=== PATIENT | male | born 1945 | race Caucasian/White ===

== ENCOUNTER 2023-07-07 09:51 | Outpatient (REF) | payer MEDICARE, MEDICAID, SELFPAY ==
[2023-07-07 10:04] LABS: MANUAL DIFF FLAG NO
[2023-07-07 10:15] LABS: Basophils Absolute Auto 0.1 X10*3/uL (0.0-0.2); Basophils Percent Auto 1.1 % (0-2); Eosinophils Absolute Auto 0.5 X10*3/uL (0.0-0.4); Hematocrit 42.4 % (42.0-52.0); Hemoglobin 14.3 g/dl (14.0-18.0); Imm Gran Abs Auto 0.02 X10*3/uL (0.00-0.03); Imm Gran Pct Auto 0.3 % (0.0-0.4); Lymphocytes Absolute Auto 1.8 X10*3/uL (1.2-4.9); Mean Corpuscular HGB Conc 33.7 g/dl (31.0-36.0); Mean Corpuscular Hemoglobin 30.8 pg (27.0-33.0); Mean Corpuscular Volume 91.2 fL (80.0-98.0); Mean Platelet Volume 9.8 fL (9.4-12.4); Monocytes Absolute Auto 0.7 X10*3/uL (0.1-1.2); Monocytes Percent Auto 9.9 % (2-11); Neutrophils Absolute Auto 4.3 x10*3/uL (2.0-8.3); Neutrophils Percent Auto 57.7 % (45-73); Platelet Count 221 X10*3/uL (160-400); Red Blood Count 4.65 X10*6/uL (4.60-5.80); Red Cell Distribution Width 13.1 % (11.0-16.0); White Blood Count 7.4 X10*3/uL (4.8-10.8)
[2023-07-07 10:53] LABS: Erythrocyte Sedimentation Rate 6 MM/HR (0-15)
[2023-07-07 11:00] LABS: C Reactive Protein 0.59 mg/dL (< or = 0.50)
== END 2023-07-07 09:52 | disposition home or self-care (01) ==
LOC: HO.LAB 09:51
PROVIDERS: PCP Family Medicine; Visit Provider Registered Nurse
DX: G44.209 Tension-type headache, unspecified, not intractable (principal)
CPT/HCPCS: 36415; 85025; 85652; 86140

== ENCOUNTER 2025-03-19 14:39 | Outpatient (AMB) | payer MEDICARE, MEDICAID, SELFPAY ==
--- NOTE | 2025-03-19 14:46 | MHC.OFFVIS ---
Intake Visit Reasons: 6m Allergies morphine Allergy (Unknown, Verified 03/19/25 14:52) Unknown Medication List - Last Reconciled 03/19/25 by Suze Cody CNP amlodipine 10 mg PO DAILY atorvastatin 40 mg PO QPM budesonide DR-ER 9 mg PO QAM duloxetine 30 mg PO DAILY gabapentin mg PO lisinopril-hydrochlorothiazide 20-12.5 mg 1 tab PO DAILY loperamide 2 mg PO Q8H PRN lorazepam mg PO omeprazole 40 mg PO BID tizanidine 4 mg PO BEDTIME PRN 30 days topiramate 50 mg PO BID 90 days HPI Comments Details: Headaches are about 50% better. Getting Botox every 3 months at [facility], first was around 08/2024. Taking duloxetine daily and topiramate twice a day. Chronic neck pain and stiffness continues. He was not sure if had received tizanidine. He was taking cyclobenzaprine in the past which helped some, but medication was no longer covered by insurance and tizanidine was sent as alternative. He occasionally felt burning-type sensation to top of head, following with dermatology and having skin cancer lesions removed, advised to use Vasiline. Sleep was okay. He saw [facility] in summer 2023, was told there was not much else they could do, and was referred to pain management. He was previously taking Tylenol Extra Strength 6 tabs/day x6 months. Started on colchicine for pericarditis. Chronic neck pain and stiffness. No longer seeing chiropractor. Tried acupuncture in the past. Had trigger point injections in the neck for neck pain from [employer] without any improvement and stopped.? He had neck surgery in 2008 with extensive fusion with hardware from C4-T1 both anterior and posterior and multiple lumbar disc surgeries from 2009 to 2013 comes in because of stiff neck and almost daily headaches for the last couple of months. MRI of the brain shows a right middle fossa anterior temporal arachnoid cyst without mass effect, given septum pellucidum and mild atrophy. MRI of the cervical spine shows anterior fusion C4-C7 posterior fusion C4-T1 and odontoid erosion with bone marrow edema and a prominent pannus formation without cord compression. [facility] Medical History (Updated 03/19/25 @ 14:49 by Suze Cody CNP) Lumbar disc disease Hyperlipidemia Hypertension Cervical disc disease Tension headache Review of Systems Const Denies chills, Denies daytime sleepiness, Reports difficulty sleeping, Denies fatigue, Denies fever(s), Denies frequent falls, Reports headache(s), Denies increased appetite, Denies poor appetite, Denies snoring, Denies weakness, Denies weight gain and Denies weight loss Eyes Denies loss of vision ENT Denies vertigo, Denies dizziness, Reports headache(s) and Reports neck pain Card Denies chest pain at rest, Denies chest pain with activity, Denies syncope, Denies leg edema, Denies palpitations, Denies dyspnea and Denies dyspnea on exertion Resp Denies cough, Denies dyspnea, Denies dyspnea on exertion and Denies snoring GI Denies abdominal pain, Denies constipation, Denies heartburn, Denies diarrhea and Denies nausea Denies urinary frequency, Denies urinary incontinence and Denies urinary urgency Musc Denies abnormal gait, Reports back pain, Denies myalgias, Denies arthralgias, Reports neck pain, Denies numbness and Denies tingling Neuro Denies abnormal gait, Denies vertigo, Denies dizziness, Denies syncope, Denies frequent falls, Reports headache(s), Denies lack of coordination, Denies loss of vision, Denies memory loss, Denies numbness, Denies Other visual disturbances, Denies restless legs, Denies seizure-like activity, Denies tingling, Denies paresthesias, Denies tremor(s) and Denies weakness Psych Reports anxiety, Denies depression, Denies auditory hallucinations, Denies memory loss and Denies visual hallucinations Endo Denies fatigue and Denies palpitations Physical Exam Const Other: General Appearance:? normal, in no acute distress. Heart:? S1, S2 normal, no murmurs. Lungs:? clear anteriorly and posteriorly. Musculoskeletal:? normal. Extremities:? no edema. Psych:? alert, oriented, cognitive function intact, cooperative with exam. Neuro Other: Abnormal Neurological Findings:?none.? Mental Status: alert and oriented X 3. Normal attention, orientation, memory, and affect. Cranial Nerves: Pupils are equal, round, and reactive to light. External ocular muscles are intact. Visual irwin are full, no ptosis. Face is symmetrical, no facial weakness or droop. Facial sensations are normal. Tongue protrudes in midline. Palate elevates symmetrically. Shoulder shrugging is normal Motor Examination: Normal muscle tone, bulk and strength. No atrophy or fasciculations. No drift of the extended upper extremities. DTR 2+. Plantars are flexor. Sensory Exam: Normal light touch, temperature, pinprick, vibration, and joint-position sensations. Rhomberg sign is absent. Coordination: No ataxia. No titubation. Gait Exam: Within normal limits. Cerebellar Signs: [id number] is okay. Extrapyramidal System: No tremor, rigidity with normal facial expressions. No bradykinesia. No bradyphrenia. Normal arm swing and posture. No propulsion or retropulsion. Speech: Normal. Results Reviewed Results Reviewed: Laboratory Tests 07/07/23 10:02 ESR 6 C-Reactive Protein 0.59 H Assessment & Plan Assessment & Plan (1) Chronic daily headache: Code(s): R51.9 - Headache, unspecified Category: Medical Plan: Continue duloxetine 30mg 1 tablet daily. Continue topiramate 50mg 1 tablet twice a day. (2) Tension headache: Code(s): G44.209 - Tension-type headache, unspecified, not intractable Category: Medical (3) Cervical disc disease: Comment: anterior and posterior cervical spine surgery with C4-T1 fusion with hardware 2008 Code(s): M50.90 - Cervical disc disorder, unspecified, unspecified cervical region Category: Medical Plan: Continue tizanidine 4mg 1 tablet at bedtime as needed for muscle spasm/pain Plan Meds tried: cyclobenzaprine, doxepin, amitriptyline Medications: New duloxetine 30 mg PO DAILY 90 caps 1RF 90 days Refilled tizanidine 4 mg PO BEDTIME PRN 30 tabs 5RF muscle spasticity, pain 30 days Coding Level of Care Code Est Pt Level 4 (35508) Diagnoses Chronic daily headache R51.9 Tension headache G44.209 Cervical disc disease M50.90
--- OUTSIDE RECORDS SUMMARY | 2025-03-20 04:55 | XMS_ITS | Data Portability ---
Author Organization [facility], Main Office Address [address] [place] [address] Care Team Providers Care Journeyman Operator Assistant Name Role Phone KEELY SALEH Neurosurgeon [phone] MICHELLE TRUONG 411 Directory Assistance Operator AMAURY GODINEZ Transfer And Pumphouse Operator Chief MARIBEL LOVE Orthopedic Surgeon DESIREE BENSON Orthopedic Surgeon ROBBI GALLARDO Primary Care Provider [phone] KINZA STEVENSON General Maintenance Engineer KINZA STEVENSON Transplant Surgeon [facility] Neurologist Assessment No assessment recorded. Plan of Treatment Reminders Order Date Submit Date Provider Last Modified By Organization Details Last Modified Time Details Appointments None recorde d. Lab magnesi um, serum or plasma 2024 025 XANDER [facility] (Centralized Electronic Ordering - All Locations), Patient Can Go To The Location Of Their Choice, [id number] 5 08:08:17 lipid panel, serum 2024 025 [facility], [address], [place], [address], 5 08:08:17 CBC w/ auto diff 2024 025 [facility], [address], [place], [address], 5 08:08:16 CMP, serum or plasma 2024 025 [facility] (Centralized Electronic Ordering - All Locations), Patient Can Go To The Location Of Their Choice, 5 08:08:17 electro lyte panel, stool 2023 024 [facility] (Centralized Electronic Ordering - All Locations), Patient Can Go To The Location Of Their Choice, 4 18:05:57 osmolal ity, stool 2023 024 [facility] (Centralized Electronic Ordering - All Locations), Patient Can Go To The Location Of Their Choice, 18:05:59 calprot ectin, stool 2023 024 [facility] (Centralized Electronic Ordering - All Locations), Patient Can Go To The Location Of Their Choice, 18:05:58 CBC w/ auto diff 2023 024 [facility] (Centralized Electronic Ordering - All Locations), Patient Can Go To The Location Of Their Choice, 4 08:09:22 BMP, serum or plasma 2023 024 [facility] (Centralized Electronic Ordering - All Locations), Patient Can Go To The Location Of Their Choice, 4 08:09:23 Referral dermato logist referra l - non healing wound/s cab top of head sun exposed , pls eval viviana. fhx of skin ca 2023 024 [email or web address] [facility], [address], [address], [place], [address], 4 09:52:52 colon & rectal surgeon referra l 2023 024 john Not available 5 10:37:34 cardiol ogist referra l 2023 024 [email or web address] Chapman MD, [address] [place], [address], 10:38:01 Procedures None recorde d. Surgeries None recorde d. Imaging None recorde d. Medication Orders compoun ded medicat ion 2023 024 [facility], [address] [place] [address], [address], 14:06:10 Patient TargetsNo targets recorded. Patient Instructions Encounter Date Encounter Id Patient Instructions Last Modified By Organization Details Last Modified Time 02/01/2024 [id number] pericarditis: care instructions [email or web address] Not available 02/07/2024 13:41:41 diarrhea: care instructions [email or web address] Not available 02/01/2024 14:27:16 electrolyte imbalance: care instructions ckokar Not available 02/01/2024 14:27:16 hyponatremia: care instructions ckokar Not available 02/01/2024 14:27:17 At [facility] follow up visit, all current and discharge medications (OTC, herbal therapies, supplements) reviewed and reconciled with patient and or caregiver, including potential side effects, drug interactions, instructions, and the consequences of not taking medication. Reviewed potential barriers to medication adherence, such as side effects from medication or cost of medication. ckokar Not available 02/01/2024 14:37:10 02/23/2024 [id number] pericarditis: care instructions ckokar Not available 02/23/2024 14:00:42 diarrhea: care instructions ckokar Not available 02/23/2024 14:00:42 hemorrhoids: car e instructions ckokar Not available 02/23/2024 14:04:47 04/18/2024 [id number] pericarditis: care instructions ckokar Not available 04/18/2024 14:25:07 headache: care instructions ckokar Not available 04/18/2024 14:25:07 high blood pressure: care instructions ckokar Not available 04/18/2024 14:25:08 learning about high blood pressure ckokar Not available 04/18/2024 14:25:07 11/20/2024 [id number] advance care planning: care instructions ckokar Not available 11/20/2024 15:15:57 preventing falls : care instructions ckokar Not available 11/20/2024 15:15:57 Reason for Referral 411 Directory Assistance Operator Referral for Pe ricarditis Referring Physician: Robbi Gallardo [facility], Encounter Date: 02/01/2024 Colon & Rectal Surgeon Refer ral for Hemorrhoids Referring Physician: Robbi Gallardo [facility], Encounter Date: 02/23/2024 Pipe Installer Referral for N on-healing pigmented skin lesion non healing wound/scab top of head sun exposed, pls eval viviana. fhx of skin ca Referring Physician: Robbi Gallardo [facility], Encounter Date: 04/18/2024 Results Created Date Observation Date Name Description Value Unit Range Abnormal Flag Note LastModifiedBy Organization Detail LastModifiedTime 01/25/20 24 01/26/2024 ERICKA C DISEA SE COMPR EHENS EMELYN deamidated gliadin abs, IgA 6 units 0-19 Negat emelyn 0 - 19 Weak Posit emelyn 20 - 30 Moder ate to Stron g Posit emelyn >30 Not Available [facility] ([facility]) [address] [place], [address], 01/26/2024 22:06:01 01/25/20 24 01/26/2024 ERICKA C DISEA SE COMPR EHENS EMELYN deamidated gliadin abs, IgG 3 units 0-19 Negat emelyn 0 - 19 Weak Posit emelyn 20 - 30 Moder ate to Stron g Posit emelyn >30 Not Available [facility] ([facility]) [address] [place], [address], 01/26/2024 22:06:01 01/25/20 24 01/26/2024 ERCIKA C DISEA SE COMPR EHENS EMELYN T-transgluta minase (ttg) IgA <2 U/mL 0-3 Negat emelyn 0 - 3 Weak Posit emelyn 4 - 10 Posit emelyn >10 Tissu e Trans gluta isaias e (tTG) has been ident ified as the endom ysial antig en. Studi es have demon str- ated that endom ysial IgA antib odies have over 99% speci ficit y for glute n sensi tive enter opath y. Not Available [facility] ([facility]) [address], [place], [address], 01/26/2024 22:06:01 01/25/20 24 01/26/2024 ERICKA C DISEA SE COMPR EHENS EMELYN T-transgluta minase (ttg) IgG 4 U/mL 0-5 Negat emelyn 0 - 5 Weak Posit emelyn 6 - 9 Posit emelyn >9 Not Available [facility] ([facility]) [address], [place], [address], 01/26/2024 22:06:01 01/25/20 24 01/26/2024 ERICKA C DISEA SE COMPR EHENS EMELYN endomysial antibody IgA Negati ve negati ve Not Available [facility] ([facility]) [address], [place], [address], 01/26/2024 22:06:01 01/25/20 24 01/26/2024 ERICKA C DISEA SE COMPR EHENS EMELYN immunoglobul in A, qn, serum 219 mg/dL 61-437 normal Not Available [facility] ([facility]) [address], [place], [address], 01/26/2024 22:06:01 01/25/20 24 01/26/2024 CBC WITH DIFFE RENTI AL/PL ATELE T WBC 8.1 x10e3 /uL 3.4-10 .8 normal Not Available [facility] ([facility]) [address] [place], [address], 01/26/2024 22:06:02 01/25/20 24 01/26/2024 CBC WITH DIFFE RENTI AL/PL ATELE T RBC 4.15 x10e6 /uL 4.14-5 .80 normal Not Available [facility] ([facility]) [address] [place], [address], 01/26/2024 22:06:02 01/25/20 24 01/26/2024 CBC WITH DIFFE RENTI AL/PL ATELE T hemoglobin 12.9 g/dL 13.0-1 7.7 below low normal Not Available [facility] ([facility]) [address] [place], [address], 01/26/2024 22:06:02 01/25/2001/26/2024 CBC WITH DIFFE RENTI AL/PL ATELE T hematocrit 38.2 % 37.5-5 1.0 normal Not Available [facility] ([facility]) [address] [place], [address], 01/26/2024 22:06:02 01/25/20 24 01/26/2024 CBC WITH DIFFE RENTI AL/PL ATELE T MCV 92 fL 79-97 normal Not Available [facility] ([facility]) [address] [place], [address], 01/26/2024 22:06:02 01/25/20 24 01/26/2024 CBC WITH DIFFE RENTI AL/PL ATELE T MCH 31.1 pg 26.6-3 3.0 normal Not Available [facility] ([facility]) [address] [place], [address], 01/26/2024 22:06:02 01/25/20 24 01/26/2024 CBC WITH DIFFE RENTI AL/PL ATELE T MCHC 33.8 g/dL 31.5-3 5.7 normal Not Available [facility] ([facility]) [address] [place], [address], 01/26/2024 22:06:02 01/25/20 24 01/26/2024 CBC WITH DIFFE RENTI AL/PL ATELE T RDW 13.0 % 11.6-1 5.4 Not Available [facility] ([facility]) [address] [place], [address], 01/26/2024 22:06:02 01/25/20 24 01/26/2024 CBC WITH DIFFE RENTI AL/PL ATELE T platelets 468 x10e3 /uL 150-45 0 above high normal Not Available [facility] ([facility]) [address], [place], [address], 01/26/2024 22:06:02 01/25/20 24 01/26/2024 CBC WITH DIFFE RENTI AL/PL ATELE T neutrophils 71 % not estab. normal Not Available [facility] ([facility]) [address], [place], [address], 01/26/2024 22:06:02 01/25/20 24 01/26/2024 CBC WITH DIFFE RENTI AL/PL ATELE T lymphs 17 % not estab. normal Not Available [facility] ([facility]) [address] [facility], [place], [address], 01/26/2024 22:06:02 01/25/20 24 01/26/2024 CBC WITH DIFFE RENTI AL/PL ATELE T monocytes 8 % not estab. normal Not Available [facility] ([facility]) [address], [place], [address], 01/26/2024 22:06:02 01/25/20 24 01/26/2024 CBC WITH DIFFE RENTI AL/PL ATELE T eos 3 % not estab. normal Not Available [facility] ([facility]) [address], [place], [address], 01/26/2024 22:06:02 01/25/20 24 01/26/2024 CBC WITH DIFFE RENTI AL/PL ATELE T basos 1 % not estab. normal Not Available [facility] ([facility]) [address], [place], [address], 01/26/2024 22:06:02 01/25/20 24 01/26/2024 CBC WITH DIFFE RENTI AL/PL ATELE T immature cells WINE MAKER Not Available [facility] ([facility]) [address] [place], [address], 01/26/2024 22:06:02 01/25/20 24 01/26/2024 CBC WITH DIFFE RENTI AL/PL ATELE T neutrophils (absolute) 5.7 x10e3 /uL 1.4-7. 0 normal Not Available [facility] ([facility]) [address] [place], [address], 01/26/2024 22:06:02 01/25/20 24 01/26/2024 CBC WITH DIFFE RENTI AL/PL ATELE T lymphs (absolute) 1.3 x10e3 /uL 0.7-3. 1 normal Not Available [facility] ([facility]) [address] [place], [address], 01/26/2024 22:06:02 01/25/20 24 01/26/2024 CBC WITH DIFFE RENTI AL/PL ATELE T monocytes(ab solute) 0.7 x10e3 /uL 0.1-0. 9 normal Not Available [facility] ([facility]) [address] [place], [address], 01/26/2024 22:06:02 01/25/20 24 01/26/2024 CBC WITH DIFFE RENTI AL/PL ATELE T eos (absolute) 0.3 x10e3 /uL 0.0-0. 4 normal Not Available [facility] ([facility]) [address] [place], [address], 01/26/2024 22:06:02 01/25/20 24 01/26/2024 CBC WITH DIFFE RENTI AL/PL ATELE T baso (absolute) 0.1 x10e3 /uL 0.0-0. 2 normal Not Available [facility] ([facility]) [address] [place], [address], 01/26/2024 22:06:02 01/25/20 24 01/26/2024 CBC WITH DIFFE RENTI AL/PL ATELE T immature granulocytes 0 % not estab. Not Available [facility] ([facility]) [address] [facility], [place], [address], 01/26/2024 22:06:02 01/25/20 24 01/26/2024 CBC WITH DIFFE RENTI AL/PL ATELE T immature grans (abs) 0.0 x10e3 /uL 0.0-0. 1 Not Available [facility] ([facility]) [address], [place], [address], 01/26/2024 22:06:02 01/25/20 24 01/26/2024 CBC WITH DIFFE RENTI AL/PL ATELE T NRBC WINE MAKER Not Available [facility] ([facility]) [address] [facility], [place], [address], 01/26/2024 22:06:02 01/25/20 24 01/26/2024 CBC WITH DIFFE RENTI AL/PL ATELE T hematology comments: WINE MAKER Not Available [facility] ([facility]) [address] [facility], [place], [address], 01/26/2024 22:06:02 01/25/20 24 01/26/2024 COMP. METAB OLIC PANEL (14) glucose 119 mg/dL 70-99 above high normal Not Available [facility] ([facility]) [address] [facility], [place], [address], 01/26/2024 22:06:03 01/25/20 24 01/26/2024 COMP. METAB OLIC PANEL (14) BUN 16 mg/dL 8-27 normal Not Available [facility] ([facility]) [address] [place], [address], 01/26/2024 22:06:03 01/25/20 24 01/26/2024 COMP. METAB OLIC PANEL (14) creatinine 0.91 mg/dL 0.76-1 .27 normal Not Available [facility] ([facility]) [address] [place], [address], 01/26/2024 22:06:03 01/25/20 24 01/26/2024 COMP. METAB OLIC PANEL (14) eGFR 87 mL/mi n/1.7 3 >59 normal Not Available [facility] ([facility]) [address] [facility], [place], [address], 01/26/2024 22:06:03 01/25/20 24 01/26/2024 COMP. METAB OLIC PANEL (14) BUN/creatini ne ratio 18 10-24 normal Not Available [facility] ([facility]) [address] [facility], [place], [address], 01/26/2024 22:06:03 01/25/20 24 01/26/2024 COMP. METAB OLIC PANEL (14) sodium 136 mmol/ L 134-14 4 normal Not Available [facility] ([facility]) [address] [place], [address], 01/26/2024 22:06:03 01/25/20 24 01/26/2024 COMP. METAB OLIC PANEL (14) potassium 3.8 mmol/ L 3.5-5. 2 normal Not Available [facility] ([facility]) [address] [place], [address], 01/26/2024 22:06:03 01/25/20 24 01/26/2024 COMP. METAB OLIC PANEL (14) chloride 100 mmol/ L 96-106 normal Not Available [facility] ([facility]) [address] [place], [address], 01/26/2024 22:06:03 01/25/20 24 01/26/2024 COMP. METAB OLIC PANEL (14) carbon dioxide, total 21 mmol/ L 20-29 normal Not Available [facility] ([facility]) [address] [facility], [place], [address], 01/26/2024 22:06:03 01/25/20 24 01/26/2024 COMP. METAB OLIC PANEL (14) calcium 8.7 mg/dL 8.6-10 .2 normal Not Available [facility] ([facility]) [address] [facility], [place], [address], 01/26/2024 22:06:03 01/25/20 24 01/26/2024 COMP. METAB OLIC PANEL (14) protein, total 6.3 g/dL 6.0-8. 5 normal Not Available [facility] ([facility]) [address] [facility], [place], [address], 01/26/2024 22:06:03 01/25/20 24 01/26/2024 COMP. METAB OLIC PANEL (14) albumin 3.8 g/dL 3.8-4. 8 normal Not Available [facility] ([facility]) [address] [facility] [place], [address], 01/26/2024 22:06:03 01/25/20 24 01/26/2024 COMP. METAB OLIC PANEL (14) globulin, total 2.5 g/dL 1.5-4. 5 Not Available [facility] ([facility]) [address] [facility] [place], [address], 01/26/2024 22:06:03 01/25/20 24 01/26/2024 COMP. METAB OLIC PANEL (14) bilirubin, total 0.2 mg/dL 0.0-1. 2 normal Not Available [facility] ([facility]) [address] [facility] [place], [address], 01/26/2024 22:06:03 01/25/20 24 01/26/2024 COMP. METAB OLIC PANEL (14) alkaline phosphatase 99 IU/L 44-121 normal Not Available [facility] ([facility]) [address] [facility] [place], [address], 01/26/2024 22:06:03 01/25/20 24 01/26/2024 COMP. METAB OLIC PANEL (14) AST (SGOT) 20 IU/L 0-40 normal Not Available [facility] ([facility]) [address] [facility] [place], [address], 01/26/2024 22:06:03 01/25/20 24 01/26/2024 COMP. METAB OLIC PANEL (14) ALT (SGPT) 17 IU/L 0-44 normal Not Available [facility] ([facility]) [address] [facility] [place], [address], 01/26/2024 22:06:03 01/25/20 24 01/26/2024 TSH RFX ON ABNOR MAL TO FREE T4 TSH 2.370 uIU/m L 0.450- 4.500 normal Not Available [facility] ([facility]) [address] [facility] [place], [address], 01/26/2024 22:06:04 01/25/20 24 01/26/2024 C-KULWINDER CTIVE PROTE IN, QUANT C-reactive protein, quant 24 mg/L 0-10 above high normal Not Available [facility] ([facility]) [address] [place], [address], 01/26/2024 22:06:04 01/25/20 24 01/27/2024 IRON AND TIBC iron bind.cap.(TI BC) 247 ug/dL 250-45 0 below low normal Not Available [facility] ([facility]) [address] [facility] [place], [address], 01/28/2024 06:08:26 01/25/20 24 01/27/2024 IRON AND TIBC UIBC 218 ug/dL 111-34 3 normal Not Available [facility] ([facility]) [address] [place], [address], 01/28/2024 06:08:26 01/25/20 24 01/27/2024 IRON AND TIBC iron 29 ug/dL 38-169 below low normal Not Available [facility] ([facility]) [address] [facility] [place], [address], 01/28/2024 06:08:26 01/25/20 24 01/27/2024 IRON AND TIBC iron saturation 12 % 15-55 below low normal Not Available [facility] ([facility]) [address] [facility] [place], [address], 01/28/2024 06:08:26 01/25/20 24 01/27/2024 VITAM IN B12 AND FOLAT E vitamin B12 1166 pg/mL 232-12 45 normal Not Available [facility] ([facility]) [address] [place], [address], 01/28/2024 06:08:26 01/25/20 24 01/27/2024 VITAM IN B12 AND FOLAT E folate (folic acid), serum >20.0 NG/mL >3.0 A serum folat e shen ntrat ion of less than 3.1 ng/mL is consi dered to repre sent clini angus defic iency . Not Available [facility] ([facility]) [address] [place], [address], 01/28/2024 06:08:26 01/25/2001/28/2024 SOLUB LE TRANS LUTHER N THEATER EDUCATION TEACHER TOR soluble transferrin receptor 14.9 nmol/ L 12.2-2 7.3 Not Available [facility] ([facility]) [address] [place], [address], 01/28/2024 06:08:27 01/25/2001/27/2024 LUTHER TIN ferritin 259 NG/mL 30-400 normal Not Available [facility] ([facility]) [address] [place], [address], 01/28/2024 06:08:27 01/25/20 24 01/26/2024 RETIC ULOCY TE COUNT reticulocyte count 1.1 % 0.6-2. 6 Not Available [facility] ([facility]) [address] [facility], [place], [address], 01/28/2024 06:08:28 01/25/2001/26/2024 WRITT EN AUTHO RIZAT ION written authorizatio n Commen t Writt en Autho rizat ion Recei jason. Autho rizat ion recei jason from [facility] JAS GALLARDO for Link Reque st on 01-25 Logge d by Avtar Broussard Not Available [facility] ([facility]) [address] [facility], [place], [address], 01/28/2024 06:08:28 01/26/2002/22/2024 ELECT ROLYT ES, FECAL sodium, stool COMMEN T mmol/ L Test not perfo rmed Test not perfo rmed. Speci men submi tted is too visco us for testi ng. A credi t will be issue d. INTER PRETI VE INFOR MATIO N: Fecal Sodiu m A refer ence inter jennifer has not been estab lishe d for fecal speci mens. This test was devel oped and its perfo rmanc e jesse cteri stics deter mined by [employer] atori es. It has not been clear ed or appro jason by the [place] Food and Drug Admin istra tion. This test was perfo rmed in a CLIA certi fied labor atory and is inten ded for clini angus purpo ses. Not Available [facility] [address] [place], [address], 02/22/2024 14:56:23 01/26/20 24 02/22/2024 ELECT ROLYT ES, FECAL potassium, stool TNP Test not perfo rmed Not Available [facility]) [address] [place], [address], 02/22/2024 14:56:23 01/26/20 24 02/22/2024 ELECT ROLYT ES, FECAL chloride, stool TNP Test not perfo rmed Not Available [facility] ([facility]) [address] [place], [address], 02/22/2024 14:56:23 01/26/20 24 01/29/2024 FECAL FAT, QUALI TATIV E fats, neutral Normal Vangie l (<60 Dropl ets/H PF) Not Available [facility] ([facility]) [address] [place], [address], 02/22/2024 14:56:25 01/26/20 24 01/29/2024 FECAL FAT, QUALI TATIV E fats, total Normal Vangie l (<100 Dropl ets/H PF) Not Available [facility] ([facility]) [address] [facility], [place], [address], 02/22/2024 14:56:25 01/26/20 24 01/29/2024 LACTO LUTHER N, FECAL , QUANT . lactoferrin, fecal, quant. 3.56 ug/mL (g) 0.00-7 .24 Basel ine (norm al) 0.00 - 7.24 Mcdonough chauncey >7.24 An eleva chauncey resul t is indic ative of the prese nce of fecal lacto luther n, a marke r of intes tinal infla mmati on. A vangie l resul t does not exclu de the prese nce of intes tinal infla mmati on. The test can be used as an in vitro diagn ostic aid to disti nguis h patie nts with activ e infla mmato ry bowel disea se (IBD) from those with non-i nflam mator y irrit able bowel syndr ome (IBS) . Not Available [facility] ([facility]) [address] [place], [address], 02/22/2024 14:56:01/26/2001/29/2024 PANCR EATIC ELAST ASE, FECAL pancreatic elastase, fecal >800 ug_el ast./ g >200 Sever e Pancr eatic Insuf ficie ncy: <100 Moder ate Pancr eatic Insuf ficie ncy: 100 - 200 Vangie l: >200 Not Available [facility] ([facility]) [address] [facility], [place], [address], 02/22/2024 14:56:26 01/26/20 24 01/29/2024 CALPR OTECT IN, FECAL calprotectin , fecal 368 ug/g 0-120 above high normal Shen ntrat ion Inter preta tion Follo w-Up < 5 - 50 ug/g Vangie l None >50 -120 ug/g Borde rline Re-ev aluat e in 4-6 weeks >120 ug/g Abnor mal Repea t as clini tano indic ated Not Available [facility] ([facility]) [address] [facility], [place], [address], 02/22/2024 14:56:27 01/26/20 24 01/28/2024 OSMOL ALITY , FECAL osmolality, fecal 526 mosmo l/kg not estab. Not Available [facility] ([facility]) [address] [facility], [place], [address], 02/22/2024 14:56:27 01/27/2001/27/2024 D-DIM ER D-dimer 6.87 mg/L_ feu <1.01 above high normal The manuf actur er recom mends that a d-Dim er value of <0.5 FEU mg/L can be used in conju nctio n with clini angus crite vincent to help exclu de Deep Vein Throm bosis (DVT) and/o r Pulmo nary Embol ism (PE) in patie nts with a low prete st proba bilit y. Not Available [facility] [address], [place], [address], 01/27/2024 13:22:27 01/27/2001/2601/27/2024 PT AND PTT INR 1.1 0.9-1. 2 Refer ence inter jennifer is for non-a ntico agula chauncey patie nts. Sugge sted INR thera peuti c range for Vitam in K antag onist thera py: Stand maryam Dose (mode rate inten sity thera peuti c range ): 2.0 - 3.0 Highe r inten sity thera peuti c range 2.5 - 3.5 Not Available [facility] ([facility]) [address] [place], [address], 01/31/2024 18:05:55 01/27/20 24 01/27/2024 PT AND PTT prothrombin time 11.9 sec 9.1-12 .0 normal Not Available [facility] ([facility]) [address] [place], [address], 01/31/2024 18:05:55 01/27/20 24 01/27/2024 PT AND PTT APTT 30 sec 24-33 normal This test has not been valid ated for monit oring unfra ction ated hepar in thera py. aPTT- based thera peuti c range s for unfra ction ated hepar in thera py have not been estab paul cedillo. For gener al guide lines on Hepar in monit oring , refer to the [facility] Dire irene of Judy reynolds. Not Available [facility] ([facility]) [address] [facility], [place], [address], 01/31/2024 18:05:55 01/27/20 24 01/28/2024 B-TYP E NATRI URETI C PEPTI DE B-type natriuretic peptide 41.3 pg/mL 0.0-10 0.0 Sieme ns [facility] metho dolog y Not Available [facility] ([facility]) [address] [place], [address], 01/31/2024 18:05:55 01/27/20 24 01/29/2024 PROCA LCITO ROMEL procalcitoni n 0.05 NG/mL 0.00-0 .08 A proca lcito romel (PCT) level above 2.0 ng/mL on the first day of ICU admis beverley is assoc iated with a high risk for progr essio n to sever e sepsi s and/o r septi c shock . A PCT level below 0.5 ng/mL on the first day of ICU admis beverley is assoc iated with a low risk for progr essio n to sever e sepsi s and/o r septi c shock . Note: Shen ntrat ions <0.5 ng/mL do not exclu de an infec tion, on accou nt of local ized infec tions (with out syste allie signs ) which can be assoc iated with such low shen ntrat ions, or a syste allie infec tion in its initi al stage s (<6 hours ). Furth ermor e, incre ased proca lcito romel can occur witho ut infec tion. PCT shen ntrat ions betwe en 0.5 and 2.0 ng/mL shoul d be inter prete d diana g into accou nt the patie nt's histo ry. It is recom adi d to retes t PCT withi n 6-24 hours if any shen ntrat ions <2 ng/mL are obtai christophe. Not Available [facility] ([facility]) [address] [place], [address], 01/31/2024 18:05:56 01/27/20 24 01/28/2024 LDH LDH 208 IU/L 121-22 4 Not Available [facility] ([facility]) [address] [place], [address], 01/31/2024 18:05:56 01/27/20 24 01/27/2024 SEDIM ENTAT ION RATE- WESTE RGREN sedimentatio n rate-westerg sushma 23 mm/HR 0-30 normal Not Available [facility] ([facility]) [address] [place], [address], 01/31/2024 18:05:57 01/27/20 24 01/31/2024 LACTI C ACID, PLASM A lactic acid, plasma 13.5 mg/dL 4.8-25 .7 Not Available [facility] ([facility]) [address] [place], [address], 01/31/2024 18:05:57 01/28/20 24 01/31/2024 STOOL CULTU RE E coli shiga toxin EIA Negati ve negati ve Not Available [facility] ([facility]) [address] [place], [address], 02/02/2024 16:07:04 01/28/20 24 02/01/2024 STOOL CULTU RE campylobacte r culture Final report Not Available [facility] ([facility]) [address] [place], [address], 02/02/2024 16:07:04 01/28/20 24 02/01/2024 STOOL CULTU RE result 1 COMMEN T No Campy lobac ter speci es isola chauncey. Not Available [facility] ([facility]) [address] [place], [address], 02/02/2024 16:07:04 01/28/20 24 02/02/2024 STOOL CULTU RE salmonella/s higella screen Final report Not Available [facility] ([facility]) [address] [place], [address], 02/02/2024 16:07:04 01/28/20 24 02/02/2024 STOOL CULTU RE result 1 COMMEN T No Salmo berto or Shige lla recov ered. Not Available [facility] ([facility]) [address] [place], [address], 02/02/2024 16:07:04 01/28/20 24 01/31/2024 C DIFFI CILE TOXIN GENE DERIK C difficile toxin gene DERIK Negati ve negati ve Not Available [facility] ([facility]) [address] [place], [address], 02/02/2024 16:07:05 01/28/20 24 02/02/2024 OVA + BIRGIT ITE EXAM ova + parasite exam Final report These resul ts were obtai christophe using wet prepa ratio n(s) and trich kyree stain ed smear . This test does not inclu de testi ng for Crypt ospor idium parvu m, Cyclo spora , or Micro spori jacqueline. Not Available [facility] ([facility]) [address] [place], [address], 02/02/2024 16:07:05 01/28/20 24 02/02/2024 OVA + BIRGIT ITE EXAM result 1 COMMEN T No ova, cysts , or birgit ites seen. One negat emelyn speci men does not rule out the possi bilit y of a birgit itic infec tion. Not Available [facility] ([facility]) [address] [facility], [place], [address], 02/02/2024 16:07:05 01/28/20 24 02/02/2024 WHITE BLOOD CELLS (WBC) , STOOL white blood cells (WBC), stool Final report none seen Not Available [facility] ([facility]) [address] [place], [address], 02/02/2024 16:07:05 01/28/20 24 02/02/2024 WHITE BLOOD CELLS (WBC) , STOOL result 1 Commen t No white blood cells seen. Not Available [facility] ([facility]) [address] [place], [address], 02/02/2024 16:07:05 01/28/20 24 01/29/2024 GIARD IA LAMBL IA AG, EIA giardia lamblia Ag, EIA Negati ve negati ve Not Available [facility] ([facility]) [address] [place], [address], 02/02/2024 16:07:06 02/01/20 24 02/02/2024 CBC WITH DIFFE RENTI AL/PL ATELE T WBC 7.8 x10e3 /uL 3.4-10 .8 normal Not Available [facility] ([facility]) [address] [place], [address], 02/02/2024 08:09:22 02/01/20 24 02/02/2024 CBC WITH DIFFE RENTI AL/PL ATELE T RBC 3.77 x10e6 /uL 4.14-5 .80 below low normal Not Available [facility] ([facility]) [address] [place], [address], 02/02/2024 08:09:22 02/01/20 24 02/02/2024 CBC WITH DIFFE RENTI AL/PL ATELE T hemoglobin 11.9 g/dL 13.0-1 7.7 below low normal Not Available [facility] ([facility]) [address] [place], [address], 02/02/2024 08:09:22 02/01/2002/02/2024 CBC WITH DIFFE RENTI AL/PL ATELE T hematocrit 35.0 % 37.5-5 1.0 below low normal Not Available [facility] ([facility]) [address] [place], [address], 02/02/2024 08:09:22 02/01/20 24 02/02/2024 CBC WITH DIFFE RENTI AL/PL ATELE T MCV 93 fL 79-97 normal Not Available [facility] ([facility]) [address] [place], [address], 02/02/2024 08:09:22 02/01/20 24 02/02/2024 CBC WITH DIFFE RENTI AL/PL ATELE T MCH 31.6 pg 26.6-3 3.0 normal Not Available [facility] ([facility]) [address] [place], [address], 02/02/2024 08:09:22 02/01/2002/02/2024 CBC WITH DIFFE RENTI AL/PL ATELE T MCHC 34.0 g/dL 31.5-3 5.7 normal Not Available [facility] ([facility]) [address] [facility], [place], [address], 02/02/2024 08:09:22 02/01/2002/02/2024 CBC WITH DIFFE RENTI AL/PL ATELE T RDW 12.9 % 11.6-1 5.4 Not Available [facility] ([facility]) [address] [facility], [place], [address], 02/02/2024 08:09:22 02/01/20 24 02/02/2024 CBC WITH DIFFE RENTI AL/PL ATELE T platelets 422 x10e3 /uL 150-45 0 normal Not Available [facility] ([facility]) [address] [facility], [place], [address], 02/02/2024 08:09:22 02/01/2002/02/2024 CBC WITH DIFFE RENTI AL/PL ATELE T neutrophils 70 % not estab. normal Not Available [facility] ([facility]) [address] [facility], [place], [address], 02/02/2024 08:09:22 02/01/20 24 02/02/2024 CBC WITH DIFFE RENTI AL/PL ATELE T lymphs 16 % not estab. normal Not Available [facility] ([facility]) [address] [place], [address], 02/02/2024 08:09:22 02/01/20 24 02/02/2024 CBC WITH DIFFE RENTI AL/PL ATELE T monocytes 9 % not estab. normal Not Available [facility] ([facility]) [address] [facility], [place], [address], 02/02/2024 08:09:22 02/01/20 24 02/02/2024 CBC WITH DIFFE RENTI AL/PL ATELE T eos 4 % not estab. normal Not Available [facility] ([facility]) [address] [facility], [place], [address], 02/02/2024 08:09:22 02/01/20 24 02/02/2024 CBC WITH DIFFE RENTI AL/PL ATELE T basos 1 % not estab. normal Not Available [facility] ([facility]) [address] [place], [address], 02/02/2024 08:09:22 02/01/2002/02/2024 CBC WITH DIFFE RENTI AL/PL ATELE T immature cells WINE MAKER Not Available [facility] ([facility]) [address] [place], [address], 02/02/2024 08:09:22 02/01/20 24 02/02/2024 CBC WITH DIFFE RENTI AL/PL ATELE T neutrophils (absolute) 5.5 x10e3 /uL 1.4-7. 0 normal Not Available [facility] ([facility]) [address] [place], [address], 02/02/2024 08:09:22 02/01/20 24 02/02/2024 CBC WITH DIFFE RENTI AL/PL ATELE T lymphs (absolute) 1.2 x10e3 /uL 0.7-3. 1 normal Not Available [facility] ([facility]) [address] [place], [address], 02/02/2024 08:09:22 02/01/20 24 02/02/2024 CBC WITH DIFFE RENTI AL/PL ATELE T monocytes(ab solute) 0.7 x10e3 /uL 0.1-0. 9 normal Not Available [facility] ([facility]) [address] [place], [address], 02/02/2024 08:09:22 02/01/20 24 02/02/2024 CBC WITH DIFFE RENTI AL/PL ATELE T eos (absolute) 0.3 x10e3 /uL 0.0-0. 4 normal Not Available [facility] ([facility]) [address] [facility], [place], [address], 02/02/2024 08:09:22 02/01/20 24 02/02/2024 CBC WITH DIFFE RENTI AL/PL ATELE T baso (absolute) 0.1 x10e3 /uL 0.0-0. 2 normal Not Available [facility] ([facility]) [address] [facility], [place], [address], 02/02/2024 08:09:22 02/01/20 24 02/02/2024 CBC WITH DIFFE RENTI AL/PL ATELE T immature granulocytes 0 % not estab. Not Available [facility] ([facility]) [address] [facility], [place], [address], 02/02/2024 08:09:22 02/01/2002/02/2024 CBC WITH DIFFE RENTI AL/PL ATELE T immature grans (abs) 0.0 x10e3 /uL 0.0-0. 1 Not Available [facility] ([facility]) [address] [facility], [place], [address], 02/02/2024 08:09:22 02/01/20 24 02/02/2024 CBC WITH DIFFE RENTI AL/PL ATELE T NRBC WINE MAKER Not Available [facility] ([facility]) [address] [facility], [place], [address], 02/02/2024 08:09:22 02/01/2002/02/2024 CBC WITH DIFFE RENTI AL/PL ATELE T hematology comments: WINE MAKER Not Available [facility] ([facility]) [address] [facility], [place], [address], 02/02/2024 08:09:22 02/01/20 24 02/02/2024 BASIC METAB OLIC PANEL (8) glucose 116 mg/dL 70-99 above high normal Not Available [facility] ([facility]) [address] [place], [address], 02/02/2024 08:09:23 02/01/20 24 02/02/2024 BASIC METAB OLIC PANEL (8) BUN 12 mg/dL 8-27 normal Not Available [facility] ([facility]) [address] [place], [address], 02/02/2024 08:09:23 02/01/2002/02/2024 BASIC METAB OLIC PANEL (8) creatinine 0.78 mg/dL 0.76-1 .27 normal Not Available [facility] ([facility]) [address] [place], [address], 02/02/2024 08:09:23 02/01/20 24 02/02/2024 BASIC METAB OLIC PANEL (8) eGFR 92 mL/mi n/1.7 3 >59 normal Not Available [facility] ([facility]) [address] [place], [address], 02/02/2024 08:09:23 02/01/20 24 02/02/2024 BASIC METAB OLIC PANEL (8) BUN/creatini ne ratio 15 10-24 normal Not Available [facility] ([facility]) [address] [place], [address], 02/02/2024 08:09:23 02/01/2002/02/2024 BASIC METAB OLIC PANEL (8) sodium 138 mmol/ L 134-14 4 normal Not Available [facility] ([facility]) [address] [place], [address], 02/02/2024 08:09:23 02/01/20 24 02/02/2024 BASIC METAB OLIC PANEL (8) potassium 4.4 mmol/ L 3.5-5. 2 normal Not Available [facility] ([facility]) [address] [place], [address], 02/02/2024 08:09:23 02/01/2002/02/2024 BASIC METAB OLIC PANEL (8) chloride 105 mmol/ L 96-106 normal Not Available [facility] ([facility]) [address] [place], [address], 02/02/2024 08:09:23 02/01/2002/02/2024 BASIC METAB OLIC PANEL (8) carbon dioxide, total 18 mmol/ L 20-29 below low normal Not Available [facility] ([facility]) [address] [facility], [place], [address], 02/02/2024 08:09:23 02/01/2002/02/2024 BASIC METAB OLIC PANEL (8) calcium 8.7 mg/dL 8.6-10 .2 normal Not Available [facility] ([facility]) [address] [place], [address], 02/02/2024 08:09:23 02/24/2002/28/2024 ELECT ROLYT ES, FECAL sodium, stool 74 mmol/ L INTER PRETI VE INFOR MATIO N: Fecal Sodiu m A refer ence inter jennifer has not been estab lishe d for fecal speci mens. This test was devel oped and its perfo rmanc e jesse cteri stics deter mined by [employer] [facility]. It has not been clear ed or appro jason by the [place] Food and Drug Admin istra tion. This test was perfo rmed in a CLIA certi fied labor atory and is inten ded for clini angus purpo ses. Not Available [facility] ([facility]) [address] [place], [address], 03/02/2024 18:05:57 10/24/20 24 02/28/2024 ELECT ROLYT ES, FECAL potassium, stool 52 mmol/ L INTER PRETI VE INFOR MATIO N: Fecal Potas sium A refer ence inter jennifer has not been estab lishe d for fecal speci mens. This test was devel oped and its perfo rmanc e jesse cteri stics deter mined by [employer]. It has not been clear ed or appro jason by the [place] Food and Drug Admin istra tion. This test was perfo rmed in a CLIA certi fied labor atory and is inten ded for clini angus purpo ses. Not Available [facility] ([facility]) [address] [place], [address], 03/02/2024 18:05:57 02/24/20 24 02/28/2024 ELECT ROLYT ES, FECAL chloride, stool 35 mmol/ L INTER PRETI VE INFOR MATIO N: Fecal Chlor nilam A refer ence inter jennifer has not been estab lishe d for fecal speci mens. This test was devel oped and its perfo rmanc e jesse cteri stics deter mined by [employer]. It has not been clear ed or appro jason by the [place] Food and Drug Admin istra tion. This test was perfo rmed in a CLIA certi fied labor atory and is inten ded for clini angus purpo ses. Not Available [facility] ([facility]) [address] [place], [address], 03/02/2024 18:05:57 02/24/20 24 03/01/2024 CALPR OTECT IN, FECAL calprotectin , fecal 100 ug/g 0-120 Shen ntrat ion Inter preta tion Follo w-Up < 5 - 50 ug/g Vangie l None >50 -120 ug/g Borde rline Re-ev aluat e in 4-6 weeks >120 ug/g Abnor mal Repea t as clini tano indic ated Not Available [facility] ([facility]) [address] [facility], [place], [address], 03/02/2024 18:05:58 02/24/20 24 03/02/2024 OSMOL ALITY , FECAL osmolality, fecal COMMEN T mosmo l/kg Test not perfo rmed. One speci men was submi tted with reque sts for multi ple tests . The reque sted testi ng requi res a separ ate speci men for each test reque sted. Not Available [facility] ([facility]) [address] [place], [address], 03/02/2024 18:05:59 02/24/20 24 03/02/[address] PROBL EM request problem COMMEN T Test not perfo rmed. One speci men was submi tted with reque sts for multi ple tests . The reque sted testi ng requi res a separ ate speci men for each test reque sted. TEST: 10577 1 Osmol ality , Fecal Not Available [facility] ([facility]) [address] [place], [address], 03/02/2024 18:05:59 03/13/20 24 03/14/2024 ESR-W ES+CR P sedimentatio n rate-westerg sushma 5 mm/HR 0-30 normal Not Available [facility] ([facility]) [address] [place], [address], 03/16/2024 06:08:51 03/13/2003/14/2024 ESR-W ES+CR P C-reactive protein, quant <1 mg/L 0-10 Not Available [facility] ([facility]) [address] [place], [address], 03/16/2024 06:08:51 03/13/2003/14/2024 RHEUM ATOID FACTO R (RF) rheumatoid factor (rf) <10.0 IU/mL <14.0 Not Available [facility] ([facility]) [address] [place], [address], 03/16/2024 06:08:52 03/13/20 24 03/14/2024 HIV AB/P2 4 AG WITH REFLE X HIV Ab/P24 Ag screen Non Reacti ve non reacti ve HIV-1 /HIV- 2 antib odies and HIV-1 p24 antig en were NOT detec chauncey. There is no labor atory evide nce of HIV infec tion. HIV Negat emelyn Not Available [facility] ([facility]) [address] [place], [address], 03/16/2024 06:08:52 03/13/20 24 03/14/2024 SIN W/REF MAITE IF POSIT EMELYN SIN direct Positi ve negati ve abnormal Not Available [facility] ([facility]) [address] [place], [address], 03/16/2024 06:08:53 03/13/20 24 03/14/2024 SIN W/REF MAITE IF POSIT EMELYN anti-DNA (ds) Ab qn <1 IU/mL 0-9 Negat emelyn <5 Equiv ocal 5 - 9 Posit emelyn >9 Not Available [facility] ([facility]) [address] [place], [address], 03/16/2024 06:08:53 03/13/20 24 03/14/2024 SIN W/REF MAITE IF POSIT EMELYN barrel lathe operator antibodies 1.2 ai 0.0-0. 9 above high normal Not Available [facility] ([facility]) [address] [place], [address], 03/16/2024 06:08:53 03/13/20 24 03/14/2024 SIN W/REF MAITE IF POSIT EMELYN caldwell antibodies <0.2 ai 0.0-0. 9 Not Available [facility] ([facility]) [address] [place], [address], 03/16/2024 06:08:53 03/13/20 24 03/14/2024 SIN W/REF MAITE IF POSIT EMELYN antisclerode rma-70 antibodies <0.2 ai 0.0-0. 9 Not Available [facility] ([facility]) [address] [place], [address], 03/16/2024 06:08:53 03/13/20 24 03/14/2024 SIN W/REF MAITE IF POSIT EMELYN sjogren's anti-ss-A <0.2 ai 0.0-0. 9 Not Available [facility] ([facility]) [address] [place], [address], 03/16/2024 06:08:53 03/13/2003/14/2024 SIN W/REF MAITE IF POSIT EMELYN sjogren's anti-ss-B <0.2 ai 0.0-0. 9 Not Available [facility] ([facility]) [address] [place], [address], 03/16/2024 06:08:53 03/13/20 24 03/14/2024 SIN W/REF MAITE IF POSIT EMELYN antichromati n antibodies <0.2 ai 0.0-0. 9 Not Available [facility] ([facility]) [address] [place], [address], 03/16/2024 06:08:53 03/13/20 24 03/14/2024 SIN W/REF MAITE IF POSIT EMELYN anti-sofya-1 <0.2 ai 0.0-0. 9 Not Available [facility] ([facility]) [address] [place], [address], 03/16/2024 06:08:53 03/13/2003/14/2024 SIN W/REF MAITE IF POSIT EMELYN anti-centrom ere B antibodies <0.2 ai 0.0-0. 9 Not Available [facility] ([facility]) [address] [place] [address], [address], 03/16/2024 06:08:53 03/13/2003/16/2024 SIN W/REF MAITE IF POSIT EMELYN complement C3, serum 146 mg/dL 82-167 Not Available [facility] ([facility]) [address] [facility], [place], [address], 03/16/2024 06:08:53 03/13/20 24 03/16/2024 SIN W/REF MAITE IF POSIT EMELYN complement C4, serum 20 mg/dL 12-38 Not Available [facility] ([facility]) [address] [facility], [place], [address], 03/16/2024 06:08:53 03/13/20 24 03/14/2024 CCP ANTIB ODIES IGG/I GA ccp antibodies IgG/IgA 8 units 0-19 Negat emelyn <20 Weak posit emelyn 20 - 39 Moder ate posit emelyn 40 - 59 Stron g posit emelyn >59 Value s above 250 units are repor chauncey at the reque st of the clien t. Such value s are beyon d the linea rity range of the assay . Not Available [facility] ([facility]) [address] [facility], [place], [address], 03/16/2024 06:08:54 03/13/20 24 03/20/2024 SIN BY IFA RFX TITER /IMMANUEL ANGELIQUE SIN by ifa rfx titer/patter n Negati ve Negat emelyn <1:80 Borde rline 1:80 Posit emelyn >1:80 ICAP nomandrzej walker re: AC-0 For more infor maday n about Hep-2 cell patte rns use ANApa ttern s.org , the offic ial websi te for the Inter natio nal Conse nsus on Antin uclea r Antib michael (SIN) Patte rns (ICAP ). Not Available [facility] ([facility]) [address] [facility], [place], [address], 03/20/2024 16:06:30 03/13/20 24 03/15/2024 LORETTA EN AUTHO GILDA ROJAS written authorizatio n Dionisio t Loretta en Autho rizat ion Recei jason. Autho rizat ion recei jason from [facility] JAS GALLARDO for Link Reque st on 03-15 Logge d by Avtar Broussard Not Available [facility] ([facility]) [address] [facility], [place], [address], 03/20/2024 16:06:31 03/22/20 24 03/28/2024 ANTIH ISTON E ANTIB ODIES anti-histone abs 1.1 units 0.0-0. 9 above high normal Negat emelyn <1.0 Weak Posit emelyn 1.0 - 1.5 Moder ate Posit emelyn 1.6 - 2.5 Stron g Posit emelyn >2.5 Not Available [facility] ([facility]) [address] [facility], [place], [address], 03/28/2024 14:06:51 03/22/20 24 03/23/2024 NETEZZA ARCHITECT ANTIB ODIES barrel lathe operator antibodies 1.1 ai 0.0-0. 9 above high normal Not Available [facility] ([facility]) [address] [facility], [place], [address], 03/28/2024 14:06:52 05/10/19 25 05/10/2024 TISSU E EXAM .note See Note Origi nal Order ing Provi chris: AMAURY E SLITZ [place] [facility] - [address], [address], [place] [facility] [place] [id number] Not Available [address], [address], 05/11/2024 12:24:35 05/10/19 25 05/10/2024 TISSU E EXAM final diagnosis Colon, random sites, biopsy : Patch y activ e colit is assoc iated with incre ased enzo a propr ia and intra epith elial eosin ophil s as well as a promi nent plasm a cell infil trate in the enzo a propr ia. (See note. ) No granu lomat a and no dyspl chloe ident ified . Note: Most of the tissu e fragm ents show simil ar veronica es, altho ugh the distr ibuti on of activ e infla mmati on is patch y. The possi bilit y of an evolv ing form of micro scopi c colit is could be consi dered ; howev er, there is no defin itive incre ase in intra epith elial lymph ocyte s in most tissu e fragm ents and there is no incre ase in the thick ness of the subep ithel ial colla gen plate in this biops y speci men. Other poten tial cause s for incre ased intra epith elial eosin ophil s in the colon inclu de idiop athic eosin ophil ic colit is, aller gies, medic ation effec ts, infec tions , colla gen vascu lar disor ders, or infla mmato ry bowel disea se. Corre latio n with clini angus and endos copic findi ngs is recom adi mcmahon d by Maribel Barreto MD on 025 at 12:22 PM Not Available [address], [address], 05/11/2024 12:24:35 05/10/19 25 05/10/2024 TISSU E EXAM comment The findi ngs were discu ssed with Dr. Arelis [place] by Dr. Clarisse Barreto on 05/11 via secur e text. Not Available [address], [address], 05/11/2024 12:24:35 05/10/19 25 05/10/2024 TISSU E EXAM gross description A. Colon, random biopsi es: Label ed rand om bi colon . Recei jason in forma addy are six soft to friab le, paredes to pink tissu e fragm ents and fecal /food debri s rangi ng from 0.15 cm to 0.35 cm in great est diame ter, which are wrapp ed in paper and submi tted in toto in one casse tte, six piece s, multi ple level s. TS Not Available [address], [address], 05/11/2024 12:24:35 05/10/19 25 05/10/2024 TISSU E EXAM disclaimer Unles s other cadet speci fied, all tissu e is 10% NB forma addy fixed and paraf fin embed ded. Not Available [address], [address], 05/11/2024 12:24:35 06/01/19 25 06/01/2024 TISSU E EXAM .note See Note Origi nal Order ing Provi chris: TARAH NEELY [facility] - [address], [address], [place] [id number] Not Available [address], [address], 06/02/2024 12:14:42 06/01/19 25 06/01/2024 TISSU E EXAM final diagnosis A. Anus, hemorr hoid, hemorr hoidec edmund: - Hemor rhoid s. Elect deandre mcmahon d by Alexsandra Valdez MD on 2024 at 12:10 PM Not Available [address], [address], 06/02/2024 12:14:42 06/01/19 25 06/01/2024 TISSU E EXAM gross description A. Anus, hemorr hoid: Label ed hemo rrhoi d anus . Recei jason in forma addy is a soft, lobul ar 1.5 x 1.2 x 1.2 cm porti on of tissu e which is surfa ce by a paredes-p ink to red mucos a and has minim al blood clot attac hed. The cut surfa rodolfo are paredes-p ink and glist ening . The speci men is submi tted in entir ety in one casse tte, three piece s. TS Not Available [address] [place], [address], 06/02/2024 12:14:42 06/01/19 25 06/01/2024 TISSU E EXAM disclaimer Unles s other cadet speci fied, all tissu e is 10% NB forma addy fixed and paraf fin embed ded. Not Available [address], [address], 06/02/2024 12:14:42 11/22/19 25 11/21/2024 CBC WITH DIFFE RENTI AL/PL ATELE T WBC 6.1 x10e3 /uL 3.4-10 .8 normal Not Available [facility] ([facility]) [address] [facility], [place], [address], 11/22/2024 08:08:16 11/22/19 25 11/21/2024 CBC WITH DIFFE RENTI AL/PL ATELE T RBC 4.75 x10e6 /uL 4.14-5 .80 normal Not Available [facility] ([facility]) [address] [place], [address], 11/22/2024 08:08:16 11/22/19 25 11/21/2024 CBC WITH DIFFE RENTI AL/PL ATELE T hemoglobin 15.2 g/dL 13.0-1 7.7 normal Not Available [facility] ([facility]) [address] [place], [address], 11/22/2024 08:08:16 11/22/19 25 11/21/2024 CBC WITH DIFFE RENTI AL/PL ATELE T hematocrit 45.9 % 37.5-5 1.0 normal Not Available [facility] ([facility] [facility] [address] [place], [address], 11/22/2024 08:08:16 11/22/19 25 11/21/2024 CBC WITH DIFFE RENTI AL/PL ATELE T MCV 97 fL 79-97 normal Not Available [facility] ([facility]) [address] [facility], [place], [address], 11/22/2024 08:08:16 11/22/19 25 11/21/2024 CBC WITH DIFFE RENTI AL/PL ATELE T MCH 32.0 pg 26.6-3 3.0 normal Not Available [facility] ([facility]) [address] [facility], [place], [address], 11/22/2024 08:08:16 11/22/19 25 11/21/2024 CBC WITH DIFFE RENTI AL/PL ATELE T MCHC 33.1 g/dL 31.5-3 5.7 normal Not Available [facility] ([facility]) [address] [facility], [place], [address], 11/22/2024 08:08:16 11/22/19 25 11/21/2024 CBC WITH DIFFE RENTI AL/PL ATELE T RDW 13.5 % 11.6-1 5.4 Not Available [facility] ([facility]) [address] [place], [address], 11/22/2024 08:08:16 11/22/19 25 11/21/2024 CBC WITH DIFFE RENTI AL/PL ATELE T platelets 220 x10e3 /uL 150-45 0 normal Not Available [facility] ([facility]) [address] [place], [address], 11/22/2024 08:08:16 11/22/19 25 11/21/2024 CBC WITH DIFFE RENTI AL/PL ATELE T neutrophils 66 % not estab. normal Not Available [facility] ([facility]) [address] [place], [address], 11/22/2024 08:08:16 11/22/19 25 11/21/2024 CBC WITH DIFFE RENTI AL/PL ATELE T lymphs 21 % not estab. normal Not Available [facility] ([facility]) [address] [place], [address], 11/22/2024 08:08:16 11/22/19 25 11/21/2024 CBC WITH DIFFE RENTI AL/PL ATELE T monocytes 7 % not estab. normal Not Available [facility] ([facility]) [address] [place], [address], 11/22/2024 08:08:16 11/22/19 25 11/21/2024 CBC WITH DIFFE RENTI AL/PL ATELE T eos 5 % not estab. normal Not Available [facility] ([facility]) [address] [place], [address], 11/22/2024 08:08:16 11/22/19 25 11/21/2024 CBC WITH DIFFE RENTI AL/PL ATELE T basos 1 % not estab. normal Not Available [facility] ([facility]) [address] [place], [address], 11/22/2024 08:08:16 11/22/19 25 11/21/2024 CBC WITH DIFFE RENTI AL/PL ATELE T immature cells WINE MAKER Not Available [facility] ([facility]) [address] [place], [address], 11/22/2024 08:08:16 11/22/19 25 11/21/2024 CBC WITH DIFFE RENTI AL/PL ATELE T neutrophils (absolute) 4.0 x10e3 /uL 1.4-7. 0 normal Not Available [facility] ([facility]) [address] [place], [address], 11/22/2024 08:08:16 11/22/19 25 11/21/2024 CBC WITH DIFFE RENTI AL/PL ATELE T lymphs (absolute) 1.3 x10e3 /uL 0.7-3. 1 normal Not Available [facility] ([facility]) [address] [place], [address], 11/22/2024 08:08:16 11/22/19 25 11/21/2024 CBC WITH DIFFE RENTI AL/PL ATELE T monocytes(ab solute) 0.5 x10e3 /uL 0.1-0. 9 normal Not Available [facility] ([facility]) [address] [facility], [place], [address], 11/22/2024 08:08:16 11/22/19 25 11/21/2024 CBC WITH DIFFE RENTI AL/PL ATELE T eos (absolute) 0.3 x10e3 /uL 0.0-0. 4 normal Not Available [facility] ([facility]) [address] [place], [address], 11/22/2024 08:08:16 11/22/19 25 11/21/2024 CBC WITH DIFFE RENTI AL/PL ATELE T baso (absolute) 0.1 x10e3 /uL 0.0-0. 2 normal Not Available [facility] ([facility]) [address] [facility], [place], [address], 11/22/2024 08:08:16 11/22/19 25 11/21/2024 CBC WITH DIFFE RENTI AL/PL ATELE T immature granulocytes 0 % not estab. Not Available [facility] ([facility]) [address] [place], [address], 11/22/2024 08:08:16 11/22/19 25 11/21/2024 CBC WITH DIFFE RENTI AL/PL ATELE T immature grans (abs) 0.0 x10e3 /uL 0.0-0. 1 Not Available [facility] ([facility]) [address] [place], [address], 11/22/2024 08:08:16 11/22/19 25 11/21/2024 CBC WITH DIFFE RENTI AL/PL ATELE T NRBC WINE MAKER Not Available [facility] ([facility]) [address] [place], [address], 11/22/2024 08:08:16 11/22/19 25 11/21/2024 CBC WITH DIFFE CONNER AL/TAMMIE Rodney hematology comments: WINE MAKER Not Available [facility] ([facility]) [address], [place], [address], 11/22/2024 08:08:16 11/22/19 25 11/22/2024 COMP. METAB OLIC PANEL (14) glucose 111 mg/dL 70-99 above high normal Not Available [facility] ([facility]) [address] [facility], [place], [address], 11/22/2024 08:08:16 11/22/19 25 11/22/2024 COMP. METAB OLIC PANEL (14) BUN 13 mg/dL 8-27 normal Not Available [facility] ([facility]) [address] [facility], [place], [address], 11/22/2024 08:08:16 11/22/19 25 11/22/2024 COMP. METAB OLIC PANEL (14) creatinine 0.99 mg/dL 0.76-1 .27 normal Not Available [facility] ([facility]) [address] [facility], [place], [address], 11/22/2024 08:08:16 11/22/19 25 11/22/2024 COMP. METAB OLIC PANEL (14) eGFR 78 mL/mi n/1.7 3 >59 normal Not Available [facility] ([facility]) [address] [facility], [place], [address], 11/22/2024 08:08:16 11/22/19 25 11/22/2024 COMP. METAB OLIC PANEL (14) BUN/creatini ne ratio 13 10-24 normal Not Available [facility] ([facility]) [address] [facility], [place], [address], 11/22/2024 08:08:16 11/22/19 25 11/22/2024 COMP. METAB OLIC PANEL (14) sodium 140 mmol/ L 134-14 4 normal Not Available [facility] ([facility]) [address] [facility] [place], [address], 11/22/2024 08:08:16 11/22/19 25 11/22/2024 COMP. METAB OLIC PANEL (14) potassium 3.9 mmol/ L 3.5-5. 2 normal Not Available [facility] ([facility]) [address] [facility] [place], [address], 11/22/2024 08:08:16 11/22/19 25 11/22/2024 COMP. METAB OLIC PANEL (14) chloride 105 mmol/ L 96-106 normal Not Available [facility] ([facility]) [address] [facility] [place], [address], 11/22/2024 08:08:16 11/22/19 25 11/22/2024 COMP. METAB OLIC PANEL (14) carbon dioxide, total 19 mmol/ L 20-29 below low normal Not Available [facility] ([facility]) [address] [facility] [place], [address], 11/22/2024 08:08:16 11/22/19 25 11/22/2024 COMP. METAB OLIC PANEL (14) calcium 8.9 mg/dL 8.6-10 .2 normal Not Available [facility] ([facility]) [address] [facility] [place], [address], 11/22/2024 08:08:16 11/22/19 25 11/22/2024 COMP. METAB OLIC PANEL (14) protein, total 6.6 g/dL 6.0-8. 5 normal Not Available [facility] ([facility]) [address] [facility] [place], [address], 11/22/2024 08:08:16 11/22/19 25 11/22/2024 COMP. METAB OLIC PANEL (14) albumin 4.3 g/dL 3.8-4. 8 normal Not Available [facility] ([facility]) [address] [place], [address], 11/22/2024 08:08:16 11/22/19 25 11/22/2024 COMP. METAB OLIC PANEL (14) globulin, total 2.3 g/dL 1.5-4. 5 Not Available [facility] ([facility]) [address] [place], [address], 11/22/2024 08:08:16 11/22/19 25 11/22/2024 COMP. METAB OLIC PANEL (14) bilirubin, total 0.5 mg/dL 0.0-1. 2 normal Not Available [facility] ([facility]) [address] [place], [address], 11/22/2024 08:08:16 11/22/19 25 11/22/2024 COMP. METAB OLIC PANEL (14) alkaline phosphatase 78 IU/L 44-121 normal Not Available [facility] ([facility]) [address] [place], [address], 11/22/2024 08:08:16 11/22/19 25 11/22/2024 COMP. METAB OLIC PANEL (14) AST (SGOT) 28 IU/L 0-40 normal Not Available [facility] ([facility]) [address] [place], [address], 11/22/2024 08:08:16 11/22/19 25 11/22/2024 COMP. METAB OLIC PANEL (14) ALT (SGPT) 22 IU/L 0-44 normal Not Available [facility] ([facility]) [address] [place], [address], 11/22/2024 08:08:16 11/22/19 25 11/22/2024 LIPID PANEL cholesterol, total 126 mg/dL 100-19 9 normal Not Available [facility] ([facility]) [address] [place], [address], 11/22/2024 08:08:17 11/22/19 25 11/22/2024 LIPID PANEL triglyceride s 102 mg/dL 0-149 normal Not Available [facility] ([facility]) [address] [place], [address], 11/22/2024 08:08:17 11/22/19 25 11/22/2024 LIPID PANEL HDL cholesterol 46 mg/dL >39 normal Not Available [facility] ([facility]) [address] [place], [address], 11/22/2024 08:08:17 11/22/19 25 11/22/2024 LIPID PANEL VLDL cholesterol angus 19 mg/dL 5-40 Not Available [facility] ([facility]) [address] [place], [address], 11/22/2024 08:08:17 11/22/19 25 11/22/2024 LIPID PANEL LDL chol calc ([facility]) 61 mg/dL 0-99 Not Available [facility] ([facility]) [address] [place], [address], 11/22/2024 08:08:17 11/22/19 25 11/22/2024 LIPID PANEL LDL calc comment: WINE MAKER Not Available [facility] ([facility]) [address] [place], [address], 11/22/2024 08:08:17 11/22/19 25 11/22/2024 MAGNE SIUM magnesium 2.1 mg/dL 1.6-2. 3 normal Not Available [facility] ([facility]) [address] [place], [address], 11/22/2024 08:08:17 11/22/19 25 11/22/2024 HEMOG LOBIN A1C hemoglobin A1C 5.7 % 4.8-5. 6 above high normal Predi abete s: 5.7 - 6.4 Diabe john: >6.4 Glyce allie contr ol for adult s with diabe john: <7.0 Not Available [facility] ([facility]) [address] [facility], [place], [address], 11/22/2024 18:05:51 11/22/19 25 11/22/2024 LORETTA EN AUTHO RIZAT ION written authorizatio n Dionisio Velasquez en Autho rizat ion Recei jason. Autho rizat ion recei jason from [facility] JAS GALLARDO for Link Reque st on 11-22 Logge d by Radha Almanza Not Available [facility] ([facility]) [address] [facility], [place], [address], 11/22/2024 18:05:52 01/26/20 24 01/26/2024 radio logy overr ead* No observ ation record ed. [email or web address] Not Available 2023 15:05:15 01/26/20 24 01/26/2024 XR, chest , 2 view Chest 2 Views Fronta l and Lat Reason : chest pain COMPAR IDALIA: None. FINDIN GS: LINES AND TUBES: None. LUNGS AND PLEURA : The left lung base is abnorm al. This is due to a combin ation of left basila r atelec tasis and a left pleura l effusi on. Right lung is clear. There is slight blunti ng of the right costop hrenic angle. No pneumo thorax . HEART, MEDIAS TINUM AND MARIUSZ: Heart size is enlarg ed. Normal medias tinal and hilar contou r. BONES AND SOFT TISSUE S: Patien t is scolio tic. There are superi mposed degene rative change s. Patien t has had extens emelyn surger y in the cervic al spine. IMPRES BEVERLEY: Cardio megaly . A small left pleura l effusi on with left basila r atelec tasis. Blunti ng of the right costop hrenic angle. An action able messag e (Malgorzata w) has been commun icated via the [employer] Action able Findin gs system on 024 1:59 PM, Patel mendoza [place] [id number]. WSN: [id number] Orderi ng Physic mercedes: Loco Gallardo Dictat ed By: Chris Shi MD Dictat ed Date/T jordi: 2:00 pm Review ed By: Chris Shi MD Signed By: Chris Shi MD Signed Date/T jordi: 2:00 pm Transc ribed By: RENETTA Transc ribed Date/T jordi: 1:56 pm Patien t [facility] [address] [place] [address], [address], 01/26/2024 17:44:55 01/26/20 24 01/26/2024 XR, chest , 2 view No observ ation record ed. [email or web address] Not Available 2023 09:37:57 01/28/20 24 01/28/2024 CT angio chest EXAMIN ATION: CT Angio Chest INDICA TION: Reason : POSTIV E D DIMER RULE OUT PE; Clinic al Questi on(s): Other: TECHNI QUE: Spiral CTA of the chest was perfor med after rapid IV contra st admini strati on withou t cardia c gating , trigge red by an ANGEL on the main pulmon mateo artery . Images are format chauncey in multip le planes using 2-D multip lanar and 3-D maximu m intens ity projec tion. 75 cc of Omnipa que 300 was admini stered intrav enousl y. Weight -based protoc ol using automa tic tube modula tion was used to optimi ze exposu re parame ters. CTDIvo l Body: 10.84 mGy, DLP Body: 426 mGy*cm . COMPAR ISONS: None. ANGIOG RAPHIC FINDIN GS: No pulmon mateo emboli sm to the subseg mental level. Normal calibe r pulmon mateo arteri es. No acute aortic abnorm ality seen on this study perfor med withou t cardia c gating . Mild to modera te athero sclero tic plaque . NON-AN GIOGRA PHIC FINDIN GS: Rubber Curer View Findin gs, Lines and Tubes: None. Trache a and Airway s: Patent withou t eviden ce of trache al or endobr onchia l lesion . Lungs and Pleura : Small to modera te left pleura l effusi on with associ ated left lower lobe atelec tasis. Trace right pleura l effusi on. A few small pulmon mateo nodule s and puncta te calcif ied granul omas are noted, the larges t measur ing up to 4 mm in the right middle lobe (serie s 10,005 image 53). No pneumo thorax . Medias tinum and mariusz: No mass or hemato ma. No medias tinal or hilar lympha denopa thy. No esopha geal abnorm ality. Heart: Heart is normal in size. Modera te perica rdial effusi on with perica rdial enhanc ement and surrou nding strand ing. Severe emerson ry artery calcif icatio n. Chest Wall Soft Tissue s: Normal . Diaphr agm and upper abdome n: Diffus e hypoat tenuat ion of the hepati c parenc hyma compat ible hepati c steato sis. Bones: No acute abnorm ality. Partia lly imaged anteri or and electrical assembly supervisor ior cervic al spinal fusion hardwa re. Mild to modera te degene rative change s throug hout the thorac ic spine. IMPRES BEVERLEY: 1. No eviden ce of pulmon mateo emboli sm. 2. Modera te perica rdial effusi on with associ ated perica rdial enhanc ement highly sugges tive of perica rditis . 3. Bilate ral pleura l effusi ons, small- to-mod erate on the left and small on the right. 4. Hepati c steato sis. The impres beverley above was relaye d to Dr. Zaida Blake by Dr. Joesph erwin over the phone on 024 at 6:27 PM. WSN: [id number] Orderi ng Physic mercedes: Loco Gallardo Dictat ed By: Joesph Garrett MD Dictat ed Date/T jordi: 6:28 pm Review ed By: Joesph Garrett MD Signed By: Joesph Garrett MD Signed Date/T jordi: 6:28 pm Transc ribed By: RENETTA Transc ribed Date/T jordi: 6:19 pm Bhaskar rodney Class: Outpat ient [email or web address] [facility] (Outpt Imaging) [address] [place], [address], 01/29/2024 08:52:51 01/28/20 24 01/28/2024 CT, angio gram, chest , w/ contr ast No observ ation record ed. [email or web address] [facility] [address] [place], [address], 01/29/2024 08:34:16 03/07/20 24 03/07/2024 nucle ar stres s test No observ ation record ed. [email or web address] [facility] (Pulmonary Lab) [address] [place], [address], 03/08/2024 14:22:17 03/08/20 24 03/07/2024 nucle ar stres s test No observ ation record ed. [email or web address] [facility] [address] [place], [address], 03/08/2024 05:38:08 03/09/20 24 03/07/2024 nucle ar stres s test No observ ation record ed. [email or web address] Not Available 2023 08:24:27 03/10/20 24 03/09/2024 XR, abdom en, 3 or more views See Note [facility] , a member of [employer] Bhaskar rodney Name: CARIDAD Cedillo Date of : 1944 Reason for Exam: Abd pain, unspec ified Exam Date: 2023 [id number] EST Report Status : Final Orderi ng Provid er: LOCO GALLARDO PCP: LOCO GALLARDO HISTOR Y: The patien t is a 78-yea r-old male with abdomi nal pain. FINDIN GS: Chest PA radiog raph of the chest again demons trates again partia lly includ es anteri or and electrical assembly supervisor ior fixati on hardwa re in the cervic al spine, as also seen on the prior study perfor med . The cardia c silhou ette is within normal limits . The aortic knob is calcif ied. The lungs and costop hrenic angles are clear. There is no subdia phragm atic free air. IMPRES BEVERLEY: No acute pulmon mateo diseas e. No change since . There is no subdia phragm atic free air. Abdome n Supine radiog raphs of the abdome n, withou t previo us for compar idalia, demons trates that the patien t has underg one previo us electrical assembly supervisor ior fusion at the L5-S1 level. There are degene rative change s and levosc oliosi s of the lumbar spine. The bowel gas patter n is nonobs tructi ve. No mass or radiop aque calcul us is seen. IMPRES BEVERLEY: Nonobs tructi ve bowel gas patter n. Code 98215 CT Telera diolog y ------ -- FINAL REPORT ------ -- Dictat ed By: Juan Velasco Dictat ed Date: 2023 07:27 ET Assign ed Physic mercedes: Juan Velasco Review ed and Electr onical ly Signed By: Juan Velasco Signed Date: 2023 07:30 ET Workst ation ID: [id number] Transc ribed By: Self Edit Transc ribed Date: 2023 07:27 ET natalio [facility] (Central Scheduling Radiology) [address] [facility], [place], [address], 03/10/2024 13:23:50 03/23/20 24 03/22/2024 XR, chest , 2 view See Note [facility] , a member of [employer] [facility] Name: CARIDAD Cedillo Date of : 1944 Reason for Exam: perica rditis Exam Date: 2023 [id number] EST Report Status : Final Orderi ng Provid er: LOCO GALLARDO PCP: LOCO GALLARDO HISTOR Y: The patien t is a 79-yea r-old male former smoker , with provid ed diagno sis of perica rditis . FINDIN GS: PA and latera l radiog raphs of the chest partia lly includ e anteri or and electrical assembly supervisor ior fixati on hardwa re in the lower cervic al spine, as also seen on the prior study perfor med 019. Again seen are degene rative change s of the thorac ic spine. The cardia c silhou ette is within normal limits . The aortic knob is calcif ied. The lungs and costop hrenic angles are clear. IMPRES BEVERLEY: No acute pulmon mateo diseas e. No change since . Code 79692 CT Telera diolog y ------ -- FINAL REPORT ------ -- Dictat ed By: Juan Velasco Dictat ed Date: 2023 07:59 ET Assign ed Physic mercedes: Juan Velasco Review ed and Electr onical ly Signed By: Juan Velasco Signed Date: 2023 08:01 ET Workst ation ID: [id number] Transc ribed By: Self Edit Transc ribed Date: 2023 07:[address] [facility] Diagnosit Imaging Dept [address] [place], [address], 04/07/2024 12:54:40 04/06/20 24 04/06/2024 US, echoc ardio gram No observ ation record ed. [email or web address] [facility] [address] [place], [address], 04/07/2024 13:46:51 05/10/19 25 colon oscop y No observ ation record ed. [facility] [address] [place], [address], 05/10/2024 13:47:40 05/25/19 25 ECG 12-le ad No observ ation record ed. [facility] [address] [facility], [place], [address], 05/25/2024 10:54:43 Result Notes Documentation Provider Name and Address Organization Details Recorded Time Xr, Abdomen, 3 Or More Views : See Note [facility], a member of [employer] Patient Name: LORA TAY Date of : 1945 Reason for Exam: Abd pain, unspecified Exam Date: 03/09/2024 [id number] EST Report Status: Final Ordering Provider: ROBBI GALLARDO PCP: ROBBI GALLARDO HISTORY: The patient is a 78-year-old male with abdominal pain. FINDINGS: Chest PA radiograph of the chest again demonstrates again partially includes anterior and posterior fixation hardware in the cervical spine, as also seen on the prior study performed 11/26/2018. The cardiac silhouette is within normal limits. The aortic knob is calcified. The lungs and costophrenic angles are clear. There is no subdiaphragmatic free air. IMPRESSION: No acute pulmonary disease. No change since 11/26/2018. There is no subdiaphragmatic free air. Abdomen Supine radiographs of the abdomen, without previous for comparison, demonstrates that the patient has undergone previous posterior fusion at the L5-S1 level. There are degenerative changes and levoscoliosis of the lumbar spine. The bowel gas pattern is nonobstructive. No mass or radiopaque calculus is seen. IMPRESSION: Nonobstructive bowel gas pattern. Code 03774 CT Teleradiology -------- FINAL REPORT -------- Dictated By: Juan Cintron Dictated Date: 03/10/2024 07:27 ET Assigned Physician: Juan Cintron Reviewed and Electronically Signed By: Juan Cintron Signed Date: 03/10/2024 07:30 ET Workstation ID: [id number] Transcribed By: Self Edit Transcribed Date: 03/10/2024 07:27 ET VENTURA Bee [facility] 03/10/2024 13:23:50 Xr, Chest, 2 View : See Note [facility], a member [employer] Patient Name: LORA TAY Date of : 1945 Reason for Exam: pericarditis Exam Date: 03/22/2024 [id number] EST Report Status: Final Ordering Provider: ROBBI GALLARDO PCP: ROBBI GALLARDO HISTORY: The patient is a 79-year-old male former smoker, with provided diagnosis of pericarditis. FINDINGS: PA and lateral radiographs of the chest partially include anterior and posterior fixation hardware in the lower cervical spine, as also seen on the prior study performed 11/26/2018. Again seen are degenerative changes of the thoracic spine. The cardiac silhouette is within normal limits. The aortic knob is calcified. The lungs and costophrenic angles are clear. IMPRESSION: No acute pulmonary disease. No change since 11/26/2018. Code [address]8869 CT Teleradiology -------- FINAL REPORT -------- Dictated By: Juan Cintron Dictated Date: 03/23/2024 07:59 ET Assigned Physician: Juan Cintron Reviewed and Electronically Signed By: Juan Cintron Signed Date: 03/23/2024 08:01 ET Workstation ID: [id number] Transcribed By: Self Edit Transcribed Date: 03/23/2024 07:59 ET Robbi Gallardo [place] [address], [address] 04/07/2024 12:54:40 Problems Name Problem SNOMED Code Status Onset Date Resolution Date Notes Provider Name and Address Organization Details Recorded Time Anxiety 24319669 Active Jessica andujar [facility] 0 11:29:38 Insomnia 917071026 Active Jessica andujar [facility] 0 11:29:38 Anemia due to unknown mechanis m [id number] Completed 03/04/[address] [facility] 6 13:28:12 Painless rectal bleeding [id number] Completed 03/02/[address] [facility] 6 12:58:47 Administ ration of bacteria l and viral vaccine Completed 200711/14/2013 RECORDED 03/12/20 08 9:46AM BY VENTURA WEBBER, OFFICE VISIT Jessica andujar, [facility] 6 15:58:23 Administ ration of bacteria l and viral vaccine Completed 200712/11/2013 RECORDED 03/12/20 08 9:46AM BY VENTURA WBEBER, OFFICE VISIT Jessica Moellerilla null, [facility] 6 15:58:23 Neck pain [id number] Completed 200811/14/2013 IMPRESSI ON: S/P CERVICAL DISCECTO MYBoubacar SALEH . 2005; RECORDED 12/29/19 09 8:12AM BY JAMES BRADLEY ON/ADDEN DUM Jessica Seaman null, [facility] 6 15:58:22 Syncope and collapse [id number] Completed 200811/14/2013 RECORDED 12/29/19 09 8:12AM BY JUMA BRADLEYATI ON/ADDEN DUM Jessica Seaman null, [facility] 6 15:58:23 Neck pain 38674960 Completed 200812/11/2013 IMPRESSI ON: S/P CERVICAL DISCECTO MYBoubacar DELFINO . 2005; RECORDED 12/29/19 09 8:12AM BY JAMES BRADLEY ON/ADDEN DUM Jessica Seaman null, [facility] 6 15:58:22 Syncope and collapse [id number] Completed 200812/11/2013 RECORDED 12/29/19 09 8:12AM BY JAMES BRADLEY ON/ADDEN DUM Jessica Seaman null, [facility] 6 15:58:23 Headache [id number] Completed 200811/14/2013 IMPRESSI ON: SOUNDS MUSCULAR /TENSION , MOTRIN, RST, ICE, SEE EYE DOC; RECORDED 02/21/20 09 10:45AM BY JAMES BRADLEY ON/ADDEN DUM Jessica Seaman null, [facility] 6 15:58:23 Screenin g for malignan t neoplasm of colon Completed 200811/14/2013 RECORDED 02/21/20 09 10:45AM BY VENTURA CONRAD, ANNOTATI ON/ADDEN DUM Jessica Seaman null, [facility] 6 15:58:23 Headache [id number] Completed 200812/11/2013 IMPRESSI ON: SOUNDS MUSCULAR /TENSION , MOTRIN, RST, ICE, SEE EYE DOC; RECORDED 02/21/20 09 10:45AM BY VENTURA CONRAD, ANNOTATI ON/ADDEN DUM Jessica Seaman null, [facility] 6 15:58:23 Gastroin testinal hemorrha ge [id number] Completed 200811/14/2013 RECORDED 03/22/20 09 10:06AM BY HAWK COHN MD, ANNOTATI ON/ADDEN DUM Jessica Seaman null, [facility] 6 15:58:22 Gastroin testinal hemorrha ge [id number] Completed 200812/11/2013 RECORDED 03/22/20 09 10:06AM BY HAWK COHN MD, ANNOTATI ON/ADDEN DUM Jessica Seaman null, [facility] 6 15:58:22 Disorder of skin [id number] Completed 201111/14/2013 RECORDED 02/01/20 12 9:55AM BY PORSHA URIAS MA, ANNOTATI ON/ADDEN DUM Jessica Seaman null, [facility] 6 15:58:22 Influenz a vaccine needed [id number] 06 Completed 201111/14/2013 RECORDED 02/01/20 12 10:27AM BY PORSHA URIAS MA, OFFICE VISIT Jessica andujar, [facility] 6 15:58:23 Inflamma tory disorder of extremit y Completed 201111/14/2013 RECORDED 02/01/20 12 9:55AM BY PORSHA URIAS MA, ANNOTATI ON/ADDEN DUM Jessica Seaman null, [facility] 6 15:58:23 Disorder of skin [id number] Completed 201112/11/2013 RECORDED 02/01/20 12 9:55AM BY PORSHA URIAS MA, ANNOTATI ON/ADDEN DUM Jessica Seaman null, [facility] 6 15:58:22 Influenz a vaccine needed [id number] 06 Completed 201112/11/2013 RECORDED 02/01/20 12 10:27AM BY PORSHA URIAS MA, OFFICE VISIT Jessica andujar, [facility] 6 15:58:23 Inflamma tory disorder of extremit y Completed 201112/11/2013 RECORDED 02/01/20 12 9:55AM BY PORSHA URIAS MA, ANNOTATI ON/ADDEN DUM Jessica Seaman null, [facility] 6 15:58:23 Follow-u p encounte r Completed 201211/14/2013 RECORDED 05/04/19 13 9:15AM BY LUIS CHIN MA, ANNOTATI ON/ADDEN DUM Jessica Seaman null, [facility] 6 15:58:23 Follow-u p encounte r Completed 201212/11/2013 RECORDED 05/04/19 13 9:15AM BY LUIS CHIN MA, ANNOTATI ON/ADDEN DUM Jessica Seaman null, [facility] 6 15:58:23 Essentia l hyperten beverley [id number] Completed 201211/14/2013 RECORDED 05/21/19 13 1:10AM BY PORSHA URIAS MA, ANNOTATI ON/ADDEN DUM Jessica Seaman null, [facility] 6 15:58:22 Low back pain 550809815 Completed 201211/14/2013 RECORDED 05/21/19 13 1:10AM BY PORSHA URIAS MA, ANNOTATI ON/ADDEN DUM Jessica Seaman null, [facility] 6 15:58:22 Essentia l hyperten beverley 59152211 Completed 201212/11/2013 RECORDED 05/21/19 13 1:10AM BY PORSHA URIAS MA, ANNOTATI ON/ADDEN DUM Jessica Seaman null, [facility] 6 15:58:22 Low back pain [id number] Completed 201212/11/2013 RECORDED 05/21/19 13 1:10AM BY PORHSA URIAS MA, ANNOTATI ON/ADDEN DUM Jessicahiram Seaman null, [facility] 6 15:58:23 Tobacco user [id number] Completed 201211/14/2013 RECORDED 06/15/19 13 10:16AM BY PORSHA URIAS MA, ANNOTLUIGI ON/ADDEN DUM VENTURA Lacy, [facility] 6 12:58:35 History of clinical finding in subject [id number] Completed 201203/02/2016 EVNTURA Lacy, [facility] 6 12:58:45 Tobacco user [id number] Completed 201212/11/2013 RECORDED 06/15/19 13 10:16AM BY PORSHA URIAS MA, ANNOTLUIGI ON/ADDEN DUM VENTURA Lacy, [facility] 6 12:58:35 Adult health examinat ion Completed 201211/14/2013 RECORDED 11/09/19 13 9:47AM BY JAMES HERRERA ON/ADDEN DUM Jessica andujar, [facility] 6 15:58:23 Adult health examinat ion Completed 201212/11/2013 RECORDED 11/09/19 13 9:47AM BY JAMES HERRERA ON/ADDEN DUM Jessica andujar, [facility] 6 15:58:23 Malaise and fatigue [id number] Completed 201311/14/2013 RECORDED 05/08/19 14 10:40AM BY PORSHA URIAS MA, JUMAATI ON/ADDEN DUM Jayshree Casillas null, [facility] 6 13:28:37 Chronic pain syndrome 378049663 Completed 201311/14/2013 RECORDED 05/08/19 14 10:40AM BY PORSHA URIAS MA, JAMES ON/ADDEN DUM Robbi Gallardo MD [address], [place], [address] , [facility] 2 12:09:56 Renewal of prescrip tion Completed 201311/14/2013 RECORDED 06/02/19 14 9:44AM BY PORSHA URIAS MA, JAMES ON/ADDEN DUM Jessica Jurgen andujar, [facility] 6 15:58:23 Renewal of prescrip tion Completed 201312/11/2013 RECORDED 06/02/19 14 9:44AM BY PORSHA URIAS MA, JAMES ON/ADDEN DUM Jessica Jurgen andujar, [facility] 6 15:58:23 Epigastr ic pain 59583859 Completed 201310/13/2022 Robbi Gallarod MD [address], [place], [address] , [facility] 3 12:04:08 Transien t organic mental disorder 036222090 Completed 201310/13/2022 Robbi Gallardo MD [address], [place], [address] , [facility] 3 12:06:27 Contact dermatit is [id number] Completed 201303/04/[address] [facility] 6 13:28:56 Tobacco user [id number] Completed 201303/02/2016 Removal Reason: quit Porsha VENTURA Cueto, [facility] 6 12:58:35 Gastroes ophageal reflux disease 397962368 Active 2013 Jessica andujar, [facility] 0 11:29:38 Hyperlip idemia 68977065 Active [address] [facility] 0 11:29:38 Essentia l hyperten beverley 21646574 Active 2013 Jessica andujar, [facility] 0 11:29:38 Unilater al inguinal hernia with obstruct ion but no gangrene Completed 201303/04/[address] [facility] 6 13:28:05 Internal hemorrho ids 77571890 Completed 201303/04/[address] [facility] 6 13:28:20 Osteoart hritis of knee 614875666 Active 2013 CORTICOS TEROID INJECTIO NS.; IMPRESSI ON: ONGOING PAIN s/p knee replacem ent Robib Gallardo MD [address], [place], [address] , [facility] 2 11:45:40 Overweig ht 397542771 Active [address] [facility] 0 11:29:38 Restless legs syndrome 38148412 Completed 201310/13/2022 Robbi Gallardo MD [address] [facility] [address], [place], [address] , [facility] 3 12:06:21 Epigastr ic pain 63185306 Completed 201312/11/2013 RECORDED 11/10/19 14 9:33AM BY JUMA ZURITAATI ON/ADDEN DUM Robbi Gallardo MD [address], [place], [address] , [facility] 3 12:04:08 Malaise and fatigue 498614330 Completed 201303/04/2016 [facility] 13:28[facility]37 Screenin g for malignan t neoplasm of colon Completed 201312/11/2013 RECORDED 11/10/19 14 9:33AM BY JAMES ZURITA ON/ADDEN DUM Jessica andujar, [facility] 6 15:58:23 Degenera tion of lumbar interver tebral disc 19570396 Active 2013 [facility] 11:29:38 Ex-smoke r 7082599 Completed 201503/04/2016 Robbi Gallardo MD [address] [address], [place], [address] , [facility] 4 13:30:32 Ex-smoke r 9414029 Active 2015 Robbi Gallardo MD [address] [address], [place], [address] , [facility] 4 13:30:32 Diarrhea 07401179 Completed 201612/24/2017 VENTURA Lacy, [facility] 8 09:42:36 Collagen ous colitis 89677611 Active 2017 Jessica andujar, [facility] 0 11:29:38 Unilater al leg edema Completed 201810/13/2022 left leg; uses compress ion stocking s Robbi Gallardo MD [address], [place], [address] , [facility] 3 12:06:50 Multiple gastric ulcers 344916378 Active 2019 Jessica andujar, [facility] 0 11:29:38 Hypergly cemia 00692421 Completed 202010/13/2022 Robbi Gallardo MD [address] [facility] [address], [place], [address] , [facility] 3 12:06:42 Arachnoi d cyst 92125792 Active 2022 Robbi Gallardo MD [address], [place], [address] , [facility] 3 12:34:36 Hyperten beverley monitori ng status 120950020 Active 2022 Dis-enro lled Yoly To null, [facility] 3 11:42:45 History of Avila' s esophagu s [id number] 956144 Active 2023 Robbi Gallardo MD [address], [place], [address] , [facility] 4 13:33:40 Pericard itis 7666192 Active 2023 Porsha groves MA null, [facility] 4 16:43:05 Refracto ry migraine 801790676 Active 2024 Robbi Gallardo MD [address], [place], [address] , [facility] 15:17:29 Prediabe john 401958551 Active 2024 Robbi Gallardo MD [address] [facility], [place], [address] , [facility] 15:27:01 Problem Notes None recorded. Procedures Surgical History Date Name Laterality Status Provider Name and Address Organization Details Recorded Time 11/21/19 25 Advanced Care Planning completed Robbi Gallardo MD [address] [facility] [address] [facility], [place], [address], [facility] 11/14/2024 17:56:32 05/10/19 25 Colonoscopy completed Porsha blanchard [place] [facility] 11/20/2024 14:55:19 10/18/19 24 Advanced Care Planning completed Robbi Gallardo MD [address] [address], [place], [address], [facility] 10/16/2023 14:13:53 10/14/19 23 Advanced Care Planning completed Robbi Gallardo MD [address] [facility] [address] [facility], [place], [address], [facility] 10/13/2022 08:49:45 07/15/19 22 Advanced Care Planning completed Robbi Gallardo MD [address] [facility] [address] [facility], [place], [address], [facility] 07/14/2021 08:30:01 07/02/19 21 total replacement of right knee joint completed Jessica Seaman [facility] 07/04/2020 13:18:10 05/27/19 21 Six-Item Cognitive Test completed Porsha blanchard [place] [facility] 05/27/2020 09:58:57 04/22/20 20 total replacement of left knee joint completed Mansi Sheldon [facility] 04/25/2020 09:27:18 12/25/19 20 Cataract Surgery completed Porsha blanchard MA [facility] 03/14/2020 15:08:17 12/12/19 20 Cataract Surgery completed Porsha blanchard MA [facility] 03/14/2020 15:07:55 05/26/19 20 Mini-Cog Test completed Porsha blanchard MA [facility] 05/26/2019 15:36:23 03/22/20 19 Egd diagnostic brush wash completed Kaleb [facility] 03/22/2019 09:37:50 12/25/19 18 Mini-Cog Test completed Porsha blanchard MA [facility] 12/24/2017 09:58:05 05/22/19 17 Fall Risk Assessment completed Porsha blanchard [place] [facility] 05/22/2016 11:16:06 05/22/19 17 Mini-Cog Test completed Porsha blanchard [place] [facility] 05/22/2016 11:17:27 05/14/19 16 Fall Risk Assessment completed Porsha blanchard [place] [facility] 05/14/2015 11:17:12 05/14/19 16 Mini-Cog Test completed Porsha blanchard MA [facility] 05/14/2015 11:19:59 05/08/19 15 Fall Risk Assessment completed Klaudia Willisoit [facility] 05/08/2014 10:31:57 05/08/19 15 Mini-Cog Test completed Klaudia Willisoit [facility] 05/08/2014 10:31:57 04/12/20 13 arthroscopic meniscectomy completed [facility] Kaleb [facility] 11/20/2019 13:49:52 04/12/20 13 chondroplasty completed [facility] 11/20/2019 13:50:24 Low back disk surgery completed Porsha blanchard [place] [facility] 08/07/2015 10:20:38 Imaging Results None recorded. Procedure Notes None recorded. Medical Equipment None Reported. Allergies Allergen ID Allergen Name Allergen Category Reaction Reaction Severity Criticality Documentation Date Start Date Code Code System Note Provider Name and Address Organization Details Recorded Time 75985 morphine medicatio n decreased blood pressure severe Not available 07/17/2016 7052 RxNorm LISANDRO Flores [address] [facility] [address], [facility] [place], [address], [place] [facility] 7 11:51:43 63575 lansopraz ole medicatio n diarrhea Not available Not available 05/26/2019 73948 Rx[facility] 0 15:26:42 40409 Non-stero idal anti-infl ammatory agent (substanc e) medicatio n Not available Not available Not available 05/31/2023 84088 5008 SNOMED has GERD with other NSAID s, but can fadi ate celec oxib VENTURA Patrick [facility] 4 16:54:09 Medications Name Sig Start Date Stop Date Status Note LastModified by Organization Details LastModified Time compounde d medicatio n Apply twice a day after bowel movement 2023 active Not Available Not Available Not Avai lable celecoxib 200 mg capsule Take 1 capsule every day by oral route as directed for 90 days. 07/14 completed Not Available Not Available Not Available cyclobenz aprine 10 mg tablet TAKE ONE TABLET BY MOUTH DAILY AT BEDTIME active Not Available Not Available No t Available amoxicill in 500 mg capsule Take 4 capsules as needed by oral route. 10/23 completed TAKE FOUR CAPSULES BY MOUTH ONE HOUR BEFORE APPOINTM ENT Not Available Not Available Not Available atorvasta tin 40 mg tablet TAKE ONE TABLET BY MOUTH EVERY EVENING active Not Available Not Available No t Available methocarb ananya 500 mg tablet TAKE 2 TABLETS BY MOUTH ONCE DAILY AT BEDTIME FOR 5 DAYS 08/31 completed Not Available Not Available Not Available prednison e 10 mg tablet TAKE 5 TABLETS BY MOUTH DAILY FOR 2 DAYS, THEN 4 DAILY FOR 2 DAYS, THEN 3 DAILY FOR 2 DAYS, THEN 2 DAILY FOR 2 DAYS, THEN 1 DAILY FOR 2 DAY 01/17 completed Not Available Not Available Not Available Glucosami ne 500 mg capsule Take 1 capsule every day by oral route. active Not Available Not Available No t Available gabapenti n 600 mg tablet Take 1 tablet every day by oral route for 30 days. active FOR SLEEP Not Available Not Available Not Available loperamid e 2 mg capsule Take 1 capsule every 8 hours by oral route as needed for 30 days, for chronic diarrhea . 2024 active Not Available Not Available Not Avai lable Carafate 1 gram tablet Take 1 tablet 4 times a day by oral route for 90 days. 07/27 completed Not Available Not Available Not Available lisinopri l 20 mg-hydroc hlorothia zide 12.5 mg tablet TAKE ONE TABLET BY MOUTH EVERY DAY 2024 active Not Available Not Available Not Avai lable amitripty line 75 mg tablet TAKE 1 TABLET BY MOUTH ONCE DAILY AT BEDTIME 08/06 completed Not Available Not Available Not Available tizanidin e 4 mg tablet TAKE ONE TABLET BY MOUTH DAILY AT BEDTIME NEEDED active Not Available Not Available No t Available doxepin 25 mg capsule TAKE 1 CAPSULE BY MOUTH AT BEDTIME 10/17 completed Not Available Not Available Not Available hydrocodo ne 5 mg-acetam inophen 325 mg tablet active Not Available Not Available Not Available sucralfat e 100 mg/mL oral suspensio n Take 10 mL 4 times a day by oral route as needed for 10 days. 03/11 completed Not Available Not Available Not Available felodipin e ER 5 mg tablet,ex tended release 24 hr QD 06/13 completed RECORDED 06/13/19 13 2:42PM BY HAWK COHN MD, PHONE ENCOUNTE R; Not Available Not Available Not Available loperamid e 2 mg tablet Take 1 tablet every 8 hours by oral route as needed for 30 days, for Diarrhea . 11/20 completed Not Available Not Available Not Available Anucort-H C 25 mg supposito ry BID AFTER BM 04/21 completed RECORDED 04/21/20 10 11:12AM BY VENTURA CONRAD, ANNOTATI ON/SHERRY DUM; Not Available Not Available Not Available diphenoxy late-atro pine 2.5 mg-0.025 mg tablet 12/24 completed Not Available Not Available Not Available penicilli n V potassium 500 mg tablet Take 1 tablet 3 times a day by oral route for 7 days. 07/25 completed Not Available Not Available Not Available Nexium 40 mg capsule,d elayed release active Not Available Not Available Not Available topiramat e 25 mg tablet TAKE 1 TABLET BY MOUTH EVERY DAY AT BEDTIME FOR ONE WEEK, THEN TAKE 2 TABLETS BY MOUTH AT BEDTIME FOR 30 DAYS 10/17 completed Not Available Not Available Not Available Aspir-Low 81 mg tablet,de layed release Take 1 tablet every day by oral route. 03/03 completed Not Available Not Available Not Available amlodipin e 5 mg tablet TAKE 1 TABLET BY MOUTH ONCE DAILY 10/30 completed increase d to 10 mg Not Available Not Available Not Available sulfameth oxazole 800 mg-trimet hoprim 160 mg tablet Take 1 tablet twice a day by oral route for 14 days. 06/28 completed Not Available Not Available Not Available omeprazol e 40 mg capsule,d elayed release TAKE ONE CAPSULE BY MOUTH TWICE A DAY active Not Available Not Available No t Available tramadol 50 mg tablet TAKE 1 TABLET BY MOUTH EVERY 6 HOURS FOR 3 DAYS 09/14 completed should contact physiatr y at [facility] for refills Not Available Not Available Not Available acetamino phen 500 mg tablet Take 2 tablets every day by oral route at bedtime. 09/04 completed Not Available Not Available Not Available triamcino lone acetonide 0.1 % topical cream APPLY A THIN LAYER TOPICALL Y TO RASH ON CHEST, BACK, SHOULDER , ARMS AND LEGS TWICE DAILY FOR 2 WEEKS ON, 1 WEEK OFF. OK TO MIX WITH TOPICAL LOTION. REPEAT APPLICAT ION OF STEROIDS TO RASH ONLY NEEDED FOR RELIEF. active Not Available Not Available No t Available oxycodone -acetamin ophen 5 mg-325 mg tablet Take 2 tablets 3 times a day by oral route as needed for 7 days. 12/26 completed Not Available Not Available Not Available alprazola m 0.5 mg tablet Take 1 tablet as needed by oral route at bedtime for 30 days. 03/17 completed switched to lorazepa m Not Available Not Available Not Available flaxseed oil 1,000 mg capsule Take 1 capsule every day by oral route. 12/24 completed Not Available Not Available Not Available amitripty line 25 mg tablet Take 3 tablets every day by oral route in the evening for 30 days. 08/06 completed Not Available Not Available Not Available prednisol one acetate 1 % eye drops,aki pension INSTILL 1 DROP INTO LEFT EYE 4 TIMES DAILY . PLEASE KEEP DROPS FOR RIGHT EYE 07/14 completed Not Available Not Available Not Available lorazepam 0.5 mg tablet TAKE 1 TABLET BY MOUTH DAILY NEEDED FOR INSOMNIA 2024 active Not Available Not Available Not Avai lable ropinirol e 0.25 mg tablet Take 1 tablet every day by oral route at bedtime for RLS for 30 days. 12/24 completed NEEDED Not Available Not Available Not Available diazepam 2 mg tablet TAKE 1 TABLET BY MOUTH TWICE DAILY NEEDED 10/13 completed Not Available Not Available Not Available Soma 350 mg tablet TAKE ONE TABLET BY MOUTH THREE TIMES DAILY 05/22 completed Not Available Not Available Not Available amlodipin e 10 mg tablet TAKE ONE TABLET BY MOUTH EVERY DAY active Not Available Not Available No t Available pantopraz ole 40 mg tablet,de layed release 40 mg by oral route. 05/26 completed Not Available Not Available Not Available Viagra 25 mg tablet Take 1 tablet every day by oral route as needed. 12/12 completed Not Available Not Available Not Available lansopraz ole 30 mg capsule,d elayed release 05/26 completed Not Available Not Available Not Available lidocaine 5 % topical patch 02/28 completed Not Available Not Available Not Available ibuprofen 200 mg tablet PRN BACK PAIN active RECORDED 04/21/20 10 11:12AM BY JAMES BRADLEY ON/SHERRY WEST; Not Available Not Available Not Available docusate sodium 100 mg capsule TAKE 1 CAPSULE BY MOUTH TWICE DAILY FOR 10 DAYS 11/20 completed Not Available Not Available Not Available gabapenti n 300 mg capsule TAKE ONE CAPSULE BY MOUTH THREE TIMES A DAY AND TAKE TWO CAPSULES BY MOUTH DAILY AT BEDTIME NEEDED active Not Available Not Available No t Available omeprazol e 20 mg capsule,d elayed release Take 2 capsules every day by oral route in the morning for 90 days. 05/26 completed Not Available Not Available Not Available furosemid e 20 mg tablet TAKE 1 TABLET BY MOUTH ONCE DAILY FOR 7 DAYS 05/26 completed Not Available Not Available Not Available lorazepam 1 mg tablet 10/17 completed Not Available Not Available Not Available warfarin 1 mg tablet Take 1 tablet every day by oral route for 30 days. 11/22 completed Not Available Not Available Not Available budesonid e DR - ER 3 mg capsule,d elayed,ex tended release TAKE THREE CAPSULES BY MOUTH EVERY MORNING active Not Available Not Available No t Available lisinopri l 10 mg-hydroc hlorothia zide 12.5 mg tablet Take 1 tablet by mouth once daily 02/16 completed Not Available Not Available Not Available ibuprofen 600 mg tablet Take 1 tablet 3 times a day by oral route for 14 days. 02/22 completed Not Available Not Available Not Available levofloxa zully 500 mg tablet TAKE 1 TABLET BY MOUTH ONCE DAILY 07/14 completed Not Available Not Available Not Available levofloxa zully 750 mg tablet TAKE 1 TABLET BY MOUTH ONCE DAILY IN THE MORNING FOR 5 DAYS 11/09 completed Not Available Not Available Not Available methylpre dnisolone 4 mg tablets in a dose pack TAKE BY MOUTH DIRECTED ON INSIDE OF PACKAGE 08/31 completed Not Available Not Available Not Available colchicin e 0.6 mg tablet TAKE 1 TABLET BY MOUTH TWICE DAILY FOR PERICARD ITIS 11/20 completed Not Available Not Available Not Available celecoxib 100 mg capsule active Not Available Not Available Not Available clotrimaz ole 1 % topical cream APPLY CREAM TOPICALL Y TO AFFECTED AND SURROUND ING AREAS OF SKIN TWICE DAILY IN THE MORNING AND EVENING FOR 2-4 WEEKS 11/20 completed Not Available Not Available Not Available amitripty line 100 mg tablet TAKE 1 TABLET BY MOUTH ONCE DAILY AT BEDTIME 10/17 completed Not Available Not Available Not Available oxycodone ER 20 mg tablet,ex tended release,1 2 hr TWO TIMES DAILY 2014 active RECORDED 08/06/19 13 10:14AM BY PORSHA URIAS MA, OFFICE VISIT; Not Available Not Available Not Available naproxen 500 mg tablet TAKE 1 TABLET PO DAILY 02/16 completed Not Available Not Available Not Available amoxicill in 875 mg-potass ium clavulana te 125 mg tablet TAKE 1 TABLET BY MOUTH EVERY 12 HOURS FOR 10 DAYS 10/23 completed Not Available Not Available Not Available oxycodone 5 mg tablet Take 2 tablets every 4-6 hours by oral route for 6 days. 11/22 completed Not Available Not Available Not Available neomycin- polymyxin -hydrocor t 3.5 mg-10,000 unit/mL-1 % ear drops,aki p INSTILL 4 DROPS INTO AFFECTED EAR(S) THREE TIMES DAILY 01/31 completed Not Available Not Available Not Available enoxapari n 40 mg/0.4 mL subcutane ous syringe Inject 0.4 mL every day by subcutan eous route as directed for 5 days. 07/14 completed Not Available Not Available Not Available topiramat e 50 mg tablet TAKE ONE TABLET BY MOUTH TWICE A DAY active Not Available Not Available No t Available Anusol 51 % rectal supposito ry BID active RECORDED 04/21/20 10 11:12AM BY VENTURA CONRAD, ANNOTATI ON/SHERRY DUM; Not Available Not Available Not Available duloxetin e 30 mg capsule,d elayed release TAKE ONE CAPSULE BY MOUTH EVERY DAY active Not Available Not Available No t Available gabapenti n 300 mg tablet QHS 02/17 completed RECORDED 02/18/20 10 2:23PM BY FRANTZ SHAH RN-BC, HISTORIC AL SUMMARY; Not Available Not Available Not Available acetamino phen 500mg po daily every 8 hours #120 05/10 completed Not Available Not Available Not Available oxycodone 5mg tablet 5-10 mg every 3- 4 PRN #60 11/22 completed Not Available Not Available Not Available senna 2 tabs at bedtime #60 05/10 completed Not Available Not Available Not Available omeprazol e DAILY 06/06 completed RECORDED 06/06/19 14 7:22AM BY HAWK COHN MD, PHONE ENCOUNTE R; Not Available Not Available Not Available warfarin 1 mg tablet, 5 mg PO #150 11/22 completed Not Available Not Available Not Available nicotine 1 patch every 24 hours #14 07/14 completed Not Available Not Available Not Available Super B Complex 1 tablet po daily active Not Available Not Available No t Available Triamcino lone Acetate BID 02/08 completed RECORDED 02/09/20 13 11:22AM BY PORSHA URIAS MA, OFFICE VISIT; Not Available Not Available Not Available Glucosami ne 1500 Complex 2 capsules po daily 07/14 completed Not Available Not Available Not Available Citrucel Sugar Free oral powder 1 scoop with water 11/18 completed one scoop daily by mouth as needed Not Available Not Available Not Available Nasal Dawson (sodium chloride) 0.65 % aerosol USE 1 DOSE IN EACH NOSTRIL ONCE DAILY IN THE MORNING active Not Available Not Available No t Available Adacel (Tdap Adolesn/A dult)(PF) 2 Lf-(2.5-5 -3-5)-5 Lf/0.5 mL IM syringe 07/25 completed Not Available Not Available Not Available Gavilyte- C 240 gram-22.7 2 gram-6.72 gram-5.84 gram oral solution MIX AND DRINK BY MOUTH 8 OUNCE GLASS EVERY 10-15 MINUTES UNTIL FINISHED 11/20 completed Not Available Not Available Not Available GaviLyte- G 236 gram-22.7 4 gram-6.74 gram-5.86 gram oral solution 12/24 completed Not Available Not Available Not Available Dexilant 60 mg capsule, delayed release active Not Available Not Available Not Available Metamucil (with sugar) 3.4 gram/7 gram oral powder Take 3.4 g twice a day by oral route as directed . 12/24 completed for diarrhea Not Available Not Available Not Available Stimulant Laxative Plus 8.6 mg-50 mg tablet Take 1 tablet every day by oral route as directed . 11/22 completed Not Available Not Available Not Available melatonin ER 10 mg tablet,ex tended release Take 1 tablet as needed by oral route in the evening for 90 days. 10/23 completed Not Available Not Available Not Available OxyContin 20 mg tablet,cr ush resistant ,extended release Take 1 tablet every day by oral route at bedtime for 30 days. active Not Available Not Available No t Available OxyContin 10 mg tablet,cr ush resistant ,extended release Take 1 tablet every day by oral route at bedtime for 30 days. active Not Available Not Available No t Available BromSite 0.075 % eye drops 03/14 completed for post op cataract Not Available Not Available Not Available Flonase Sensimist 27.5 mcg/actua tion nasal spray,aki pension Take 1 spray every day by nasal route at bedtime for 30 days. 2022 active Not Available Not Available Not Avai lable Shingrix (PF) 50 mcg/0.5 mL intramusc ular suspensio n, kit 02/28 completed Not Available Not Available Not Available Nurtec ODT 75 mg disintegr ating tablet Take 1 tablet every day by oral route as needed. 01/31 completed samples given Not Available Not Available Not Available Fluzone High-Dose Quad (PF) 240 mcg/0.7 mL IM syringe PHARMACI ST ADMINIST ERED IMMUNIZA TION ADMINIST ERED AT TIME OF DISPENSI NG 03/14 completed Not Available Not Available Not Available Vitals Date Recorded Body height Body mass index (BMI) Body weight Heart rate Oxygen saturation Oxygen saturation in Arterial blood by Pulse oximetry Body temperature Systolic And Diastolic Provider Name and Address Organization Details Last Updated DateTime 5 165.1 cm 28.1 kg/m2 24689.1 1 g 67 /min 96 % 96 % 97.3 [degF] 133/66 mm[Hg] Porsha connor [facility] [place] 5 14:51:44 Date Recorded Body height Body mass index (BMI) Body weight Heart rate Oxygen saturation Oxygen saturation in Arterial blood by Pulse oximetry Body temperature Systolic And Diastolic Provider Name and Address Organization Details Last Updated DateTime 4 165.1 cm 27.9 kg/m2 11743.7 3 g 93 /min 100 % 100 % 97.9 [degF] 133/70 mm[Hg] Karla Sawyer LPN [facility] [place] 4 14:08:53 Date Recorded Body height Body mass index (BMI) Body weight Heart rate Oxygen saturation Oxygen saturation in Arterial blood by Pulse oximetry Body temperature Systolic And Diastolic Provider Name and Address Organization Details Last Updated DateTime 4 165.1 cm 26.7 kg/m2 12215.5 8 g 82 /min 99 % 99 % 97.6 [degF] 114/69 mm[Hg] Ines Hodges MA [facility] 4 13:41:30 Date Recorded Body height Body mass index (BMI) Body weight Heart rate Oxygen saturation Oxygen saturation in Arterial blood by Pulse oximetry Body temperature Systolic And Diastolic Provider Name and Address Organization Details Last Updated DateTime 4 165.1 cm 27.1 kg/m2 06637.5 6 g 74 /min 97 % 97 % 97.5 [degF] 125/64 mm[Hg] Porsha connor MA [facility] 4 14:11:14 Social History Question Answer Notes LastModified by Organizat ion Details LastModified Time Tobacco Smoking Status [facility] 11:55:42 Do You Have An Advance Directive? Yes HCP; Ishan Fox Information not available 02/13/2015 Is Blood Transfusion Acceptable In An Emergency? Yes Information not available 02/13/2015 What Is Your Level Of Caffeine Consumption? Moderate 2 Cups Of Coffee Daily Information not available 05/08/2014 How Much Tobacco Do You Chew? None Information not available 02/13/2015 What Type Of Diet Are You Following? REGULAR Information not available 02/13/2015 Which Illicit Or Recreational Drugs Have You Used? None Information not available 02/13/2015 When Did You Quit Smoking? 16+yearssinc elastcigaret te Information not available 05/27/2020 Do You Take Precautions To Prevent Distracted Driving? Yes Information not available 02/13/2015 How Often Do You Need To Have Someone Help You When You Read Instructions, Pamphlets, Or Other Written Material From Your Doctor Or Pharmacy? Never Information not available 02/13/2015 Have You Served In The ? No Information not available 03/02/2016 Have You Or Anyone In Your Household Had Any Of The Following Symptoms In The Last 14 Days: Sore Throat, Cough, Chills, Body Aches For Unknown Reasons, Shortness Of Breath For Unknown Reasons, Loss Of Smell, Loss Of Taste, Fever At Or Greater Than 100 Degrees Fahrenheit? No Information not available 11/20/2019 Are You Or Anyone In Your Household A Health Care Provider Or Emergency Responder? No Information not available 11/20/2019 To The Best Of Your Knowledge Have You Been In Close Proximity To Any Individual Who Tested Positive For COVID-19? No Information not available 11/20/2019 *AWV ONLY* Are You Presently Prescribed Opioid Medication By PCP Or Specialist? If YES -Provider Assess The Benefit For Other, Non-opioid Pain Therapies Instead, Even If The Patient Does Not Have OUD But Is Possibly At Risk. No Information not available 05/27/2020 Have You Recently Traveled To A COVID-19 High Risk Area Or Gathering In The Last 10 Days? No Information not available 05/27/2020 What Was The Date Of Your Most Recent Tobacco Screening? 11/20/2024 Information not available 11/20/2024 How Many Children Do You Have? 0 Information not available 02/13/2015 What Is Your Current Pack Years? 10packyears Information not available 05/27/2020 Are You Sexually Active? No Partner (Ishan) Information not available 11/11/2022 At What Age Did You Start Smoking Tobacco? 19 Quit At 24 Information not available 02/13/2015 Are You Passively Exposed To Smoke? No Information not available 02/13/2015 How Much Tobacco Do You Smoke? 0.5 PPD Information not available 02/13/2015 Do You Use Sunscreen Routinely? Yes Information not available 02/13/2015 How Many Years Have You Smoked Tobacco? 5 Information not available 02/13/2015 Sex: Unknown Functional Status Question Answer Note LastModified by Organizat ion Details LastModified Time Do you use any illicit or recreational drugs? No Information not available 07/14/2021 Do you or have you ever used any other forms of tobacco or nicotine? No Information not available 07/14/2021 What is your level of alcohol consumption? Moderate 2 beers a day Information not available 05/08/2014 Do you or have you ever used smokeless tobacco? Never used smokeless tobacco Information not available 03/25/2019 Are you currently employed? No retired Information not available 02/13/2015 Are you able to walk independently without assistance or assistive devices? YESWOREST Information not available 07/14/2021 Are you able to care for yourself independently? 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 Never used electronic cigarettes Information not available 03/25/2019 What is your exercise level? Moderate walking his dog 2 x day Information not available 05/08/2014 Mental Status None recorded. Family History Relationship Description Onset Age of this Age Resolved Age Notes LastModified by Organization Details LastModified Time Mother Myocardial infarction 75 [email or web address] s Not available 02/13/2015 10:06:39 Father Malignant lymphoma of spleen 64 [email or web address] s Not available 02/13/2015 10:06:39 Brother Malignant neoplasm of pancreas [email or web address] Not available 2021 11:49:13 Medical History Condition Response Hypertension Y Immunizations Vaccine Type Date Status Note Provider Nam e and Address Organization Details Recorded Time Tdap 8 completed Jessica [facility]ujar, [facility] 07/28/2019 11:29:26 zoster live 9 completed Jessica andujar, [facility] 07/28/2019 11:29:25 Influenza, high-dose, trivalent, PF 9 completed Jessica andujar, [facility] 07/28/2019 11:29:26 zoster recombinant 9 completed VENTURA Bee, [facility] 07/14/2021 11:16:34 zoster live 4 completed VENTURA Bee, [facility] 07/14/2021 11:16:34 zoster recombinant 9 completed VNETURA Bee, [facility] 07/14/2021 11:16:34 Influenza, high-dose, quadrivalent, PF 0 completed VENTURA Bee, [facility] 07/14/2021 11:16:34 COVID-19, mRNA, LNP-S, PF, 30 mcg/0.3 mL dose 1 completed VENTURA Bee, [facility] 07/14/2021 11:16:34 COVID-19, mRNA, LNP-S, PF, 30 mcg/0.3 mL dose 1 completed VENTURA Bee, [facility] 07/14/2021 11:16:34 COVID-19, mRNA, LNP-S, PF, 30 mcg/0.3 mL dose 1 completed VENTURA Bee, [facility] 07/14/2021 11:16:34 COVID-19, mRNA, LNP-S, PF, 100 mcg/0.5mL dose or 50 mcg/0.25mL dose 1 completed VENTURA Bee, [facility] 02/16/2022 11:35:33 Influenza, high-dose, trivalent, PF 8 completed VENTURA Bee, [facility] 02/16/2022 11:35:33 COVID-19, mRNA, LNP-S, PF, 100 mcg/0.5mL dose or 50 mcg/0.25mL dose 1 completed VENTURA Bee, [facility] 02/16/2022 11:35:33 Pneumococcal conjugate PCV20, polysaccharide [id number] conjugate, adjuvant, PF 2 completed VENTURA Bee, [facility] 02/16/2022 11:35:34 Influenza, high-dose, trivalent, PF 7 completed VENTURA Bee, [facility] 02/16/2022 11:35:34 pneumococcal polysaccharide PPV23 9 completed VENTURA Bee, [facility] 02/16/2022 11:35:34 Influenza, high-dose, quadrivalent, PF 2 completed VENTURA Bee, [facility] 02/16/2022 11:35:34 Influenza, split virus, quadrivalent, PF 5 completed VENTURA Bee, [facility] 02/16/2022 11:35:34 Influenza, high-dose, trivalent, PF 6 completed VENTURA Bee, [facility] 02/16/2022 11:35:34 Influenza, split virus, trivalent, PF 4 completed VENTURA Bee, [facility] 02/16/2022 11:35:34 COVID-19, mRNA, LNP-S, bivalent, PF, 30 mcg/0.3 mL dose 3 completed VENTURA Bee, [facility] 08/24/2022 10:41:42 Influenza, high-dose, quadrivalent, PF 3 completed VENTURA Bee, [facility] 10/18/2023 13:01:30 Influenza, high-dose, trivalent, PF 4 completed Karla Sawyer LPN null, [facility] 02/01/2024 14:09:14 Pneumococcal conjugate PCV 13 7 completed Not Available [facility] 05/20/2019 02:21:37 Hep B, adult 9 completed Jessica Seaman null, [facility] 07/28/2019 11:29:26 Hep B, adult 9 completed Jessica Seaman null, [facility] 07/28/2019 11:29:26 Hep B, adult 9 completed Jessica Seaman null, [facility] 07/28/2019 11:29:25 Tdap 8 completed Jessica Seaman null, [facility] 07/28/2019 11:29:25 Influenza, split virus, trivalent, preservative 0 completed Jessica Seaman null, [facility] 07/28/2019 11:29:26 Influenza, split virus, trivalent, preservative 1 completed Jessica Seaman null, [facility] 07/28/2019 11:29:26 influenza, seasonal, intradermal, preservative free 2 completed Jessica Seaman null, [facility] 07/28/2019 11:29:25 pneumococcal polysaccharide PPV23 2 completed Jessica Seaman null, [facility] 07/28/2019 11:29:25 Influenza, split virus, trivalent, preservative 3 completed Jessica Seamna null, [facility] 07/28/2019 11:29:25 Past Encounters Encounter ID Performer Location Encounter Start Date Encounter Closed Date Diagnosis/Indication Diagnosis SNOMED-CT Code Diagnosis ICD10 Code Diagnosis IMO Codes Diagnosis Note [id number] [facility]Comm erce [address] [facility] [address] [place] [address] 11/11/2004 00:00:00 [id number] [place] [address] 10/22/2006 00:00:00 [id number] [address] [place] [address] 03/08/2007 00:00:00 [id number] auto[address] erce [address] [place] [address] 09/09/2007 00:00:00 [id number] autoEComm erce [address] [facility] [address] [place] [address] 2008 00:00:00 [id number] autoEComm erce [address] [facility] [address] [place] [address] 06/08/2008 00:00:00 [id number] autoEComm erce [address] [facility],[address] [place] [address] 09/21/2008 00:00:00 [id number] autoEComm erce [address] [facility],[address] [place] [address] 12/28/2008 00:00:00 [id number] autoEComm erce [address] [facility],[address] [place] [address] 03/22/2009 00:00:00 [id number] autoEComm erce [address] [facility],[address] [place] [address] 09/19/2009 00:00:00 [id number] autoEComm erce [address] [facility],[address] [place] [address] 04/23/2010 00:00:00 [id number] autoEComm erce [address] [facility],[address] [place] [address] 07/17/2010 00:00:00 [id number] autoEComm erce [address] [facility],[address] [place] [address] 10/22/2010 00:00:00 [id number] [address] [place] [address] 12/18/2010 00:00:00 [id number] auto[facility]Comm erce [address] [place] [address] 01/19/2011 00:00:00 [id number] auto[address]Comm erce [address] [place] [address] 05/06/2011 00:00:00 [id number] auto[address]Comm erce [address] [place] [address] 07/31/2011 00:00:00 [id number] autoEComm erce [address] [facility] [address] [place] [address] 09/17/2011 00:00:00 [id number] autoEComm erce [address] [facility],[address] [place] [address] 11/03/2011 00:00:00 [id number] autoEComm erce [address] [facility] [address] [place] [address] 02/01/2012 00:00:00 [id number] autoEComm erce [address] [facility],[address] [place] [address] 05/04/2012 00:00:00 [id number] autoEComm erce [address] [facility],[address] [place] [address] 08/05/2012 00:00:00 [id number] autoEComm erce [address] [facility] [address] [place] [address] 11/08/2012 00:00:00 [id number] autoEComm erce [address] [facility] [address] [place] [address] 02/08/2013 00:00:00 [id number] autoEComm erce [address] [facility] [address] [place] [address] 05/08/2013 00:00:00 [id number] autoEComm erce [address] [facility] [address] [place] [address] 08/14/2013 00:00:00 [id number] autoEComm erce [address] [facility],[address] [place], [place] [address] 11/09/2013 00:00:00 [id number] autoEComm erce [address] [place], [place] [address] 03/29/2006 00:00:00 [id number] autoEComm erce [address] [facility],[address] [place], [place] [address] 09/24/2005 00:00:00 [id number] autoEComm erce [address] [facility],[address] [place], [place] [address] 03/19/2005 00:00:00 [id number] Hawk Cohn MD Main Office [address] [facility] [address] [place] [address] 02/19/2014 11:31:22 02/19/2014 12:19:46 Chronic pain syndrome 623498701 Needs infl uenza immunization 029892390 Varicella vaccination 55906592 [id number] Hawk Cohn MD Main Office [address] [facility] [address] [place] [address] 05/08/2014 10:17:04 05/08/2014 11:16:33 Chronic pain syndrome 742286232 Adult heal th examination 240633374 Essential hypertension 71072777 Anxiety 80650352 Hyperlipidemia 94006390 [id number] Hawk Cohn MD Main Office [address] [facility] [address] [place] [address] 08/10/2014 10:34:43 08/10/2014 11:43:31 Essential hypertension 05789252 Chronic pain syndrome 111686942 Insomnia 136639874 [id number] Hawk Cohn MD Main Office [address] [facility] [address] [place] [address] 11/09/2014 11:34:05 11/09/2014 12:04:08 Chronic pain syndrome 747151677 Essential hypertension 68280380 [id number] Sylvia Smith PA-C Main Office [address] [facility] [address] [place] [address] 02/13/2015 09:39:52 02/13/2015 11:23:29 Essential hypertension 06503379 I10 Stable control with current therapy. Continue and f/u with PCP. Continue limiting dietary sodium and caffeine and test BP periodical ly at home or at the supermarke t. Chronic pain syndrome 37 5441669 G89.4 Stable chronic low back pain. Continue current m eds. Renewed Oxycontin for 30 days. Pt. will lower Gabapentin to 300 mg BID to try. Return to PCP in 1 month. [id number] Hawk Cohn MD Main Office [address] [address] [place] [address] 03/05/2015 11:05:04 03/05/2015 11:19:30 Needs influenza immunization 543388406 Z23 [id number] Hawk Cohn MD Main Office [address] [address] [place] [address] 05/14/2015 11:01:34 05/14/2015 12:19:07 Adult health examination 286450149 Z00.00 Essential hypertension 03841697 I10 Chronic pain syndrome 37 1578632 G89.4 Insomnia 005509128 G47.0 0 Anxiety 29092884 F41.9 [id number] Hawk Cohn MD Main Office [address] [address] [place] [address] 08/07/2015 09:50:28 08/07/2015 11:08:44 Essential hypertension 93930491 I10 Restless l egs syndrome 87495919 G25.81 Chronic pain syndrome 37 1811219 G89.4 Anemia due to unknown mechanism 24675228 D64.9 Painless r ectal bleeding 663726800 K62.5 [id number] Hawk Cohn MD Main Office [address] [address] [place] [address] 03/02/2016 12:33:29 03/02/2016 13:30:01 Cellulitis of face 000084228 L03.211 [id number] Hawk Cohn MD Main Office [address] [address] [place] [address] 03/04/2016 13:23:52 03/04/2016 14:09:35 Cellulitis of face 549362121 L03.211 [id number] Hawk Cohn MD Main Office [address] [address] [place] [address] 2016 14:27:35 2016 15:04:51 Essential hypertension 29317486 I10 Influenza vaccine needed 2229768146 106 Z23 Hyperlipidemia 86703050 E78.5 Fatigue 71710656 R53.83 [id number] Hawk Cohn MD Main Office [address] [address] [place] [address] 05/22/2016 10:44:36 05/22/2016 12:00:16 Adult health examination 013735884 Z00.00 Gastroesop hageal reflux disease 975397708 K21.9 Irritable bowel syndrome 51876164 K58.9 Administra tion of pneumococcal vaccine 71951712 Z23 Varicella vaccination 68 557408 Z23 Restless l egs syndrome 35806009 G25.81 Stable off of meds. Had taking Requip. Stopped in November 2015 (no clear history of side effects) [id number] Hawk Cohn MD Main Office [address] [address] [place] [address] 07/17/2016 09:07:31 07/17/2016 10:42:56 [id number] LISANDRO Flores Main Office [address] [address] [place] [address] 07/17/2016 11:32:42 07/17/2016 12:08:05 Small bowel obstruction 140391295 K56.60 Sx improved, denies N/V/D abdominal pain. + flatus and normal BMs. Surgery follow-up 07/30 as scheduled. Gastroesop hageal reflux disease 137162928 K21.9 Essential hypertension 32074721 I10 BP 145/80 today, repeated manually 134/80. [facility] > 140/90 consistent ly, otherwise f/u in October as scheduled. [id number] Hawk Cohn MD Main Office [address] [address] [place] [address] 11/18/2016 10:43:20 11/18/2016 11:35:33 Essential hypertension 68287905 I10 Hyperlipidemia 65723669 E78.5 Fatigue 52537389 R53.83 [id number] Hawk Cohn MD Main Office [address] [place] [address] 12/24/2016 12:56:20 12/24/2016 13:23:09 Influenza vaccine needed 2159255157 106 Z23 Degenerati on of lumbar intervertebral disc 71978582 M51.36 Primary er ectile dysfunction 002668702 N52.9 [id number] Hawk Cohn MD Main Office [address] [address] [place] [address] 03/11/2017 10:05:33 03/11/2017 11:06:44 Epidermoid cyst of skin 486134240 L72.0 cyst versus tiny lipoma [id number] Hawk Cohn MD Main Office [address] [address] [place] [address] 12/24/2017 09:34:52 12/24/2017 10:44:32 Adult health examination 436780806 Z00.00 Administra tion of diphtheria, pertussis, and tetanus vaccine 273166434 Z23 Essential hypertension 02448857 I10 Hepatitis C screening 41 1117101 Z11.59 Active or passive immunization 155024453 Z23 Dental abscess 388951301 K04.7 Influenza vaccine needed 8137110304 106 Z23 Varicella vaccination 68 148722 Z23 Requires v aricella vaccination 829523661 Z23 [id number] Hawk Cohn MD Main Office [address] [address] [place] [address] 07/25/2018 10:24:06 07/25/2018 11:14:29 Hepatitis C screening 587517519 Z11.59 Administra tion of pneumococcal vaccine 70064694 Z23 Essential hypertension 05759348 I10 Collagenous colitis 1931 1003 K52.831 [id number] Luisana dickens MD Main Office [address] [address] [place] [address] 11/25/2018 09:16:08 11/25/2018 10:09:27 [id number] Luisana dickens MD Main Office [address] [address] [place] [address] 11/25/2018 15:29:40 11/25/2018 16:11:59 Essential hypertension 31235810 I10 BP well controlled on meds Chronic low back pain 27 2794601 M54.5 on celebrex 100mg bid, no hx of cardiac disease. return 01/19 for recheck with Milagro, should get renal function at that time Gastroesop hageal reflux disease 375838185 K21.9 on PPI bid, abdomen without discomfort [id number] Jens Hutchinson MD Main Office [address] [address] [place] [address] 12/12/2018 09:54:26 12/12/2018 11:05:23 Upper abdominal pain 72430666 R10.10 EGD done, report pending Chest pain 03647899 R07. 2 Does not appear to be muscular or costocondr itis at this time, Gi evaluation ongoing, would request cardilogy input . 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 Will schedule with surgeon if he would like in the future. Thoracic back pain 99770 [address]004 [address]54[address] Saleh, pt will call to get appt. Abdominal bloating 63605 9008 R14.0 Due to persistent sx [place] [id number] Hawk Cohn MD Main Office [address] [address] [place] [address] 01/17/2019 12:51:26 01/17/2019 14:05:05 Thoracic back pain 532739493 M54.6 pt unable to get apptmt c Dr. Saleh - ins denied his mri - but see below Lipoma of trunk 86484400 01 90159 D17.1 ? if this is ultimately the etiology of his L sided thoracic pain - ? compressin g intermitte ntly against nerve endings - will get general surgery eval Abdominal bloating 26800 9008 R14.0 and mild upper abdominal lymphadeno evan (gastrohep atic ligament) on recent CTA - pending get CT a/p next wednesday - see below Avila's esophagus 3029 96731 K22.70 had recent egd - h/o such x many yrs - rec cont ppi bid and advised next egd in 2 yrs (was on 3 yr plan) - but see above - ? risk factor for esophageal carcinoma - attempted to coordinate c nutrient management specialist - pt to bring cta results from on cd to his upcoming [place] [facility] [place] so as to reduce likelihood of potentiall y missing lymphadeno evan on upcoming scan [id number] Jens Hutchinson MD Main Office 3640 [facility] 207 [facility] [place] [address] 02/28/2019 10:23:57 02/28/2019 12:02:26 Epigastric pain 79864076 R10.13 see below Avila's esophagus 3029 29133 K22.70 had recent egd - h/o such x many yrs - - had mild upper abdominal lymphadeno evan (gastrohep atic ligament) on recent CTA and had ct a/p on 01.23 - revealed circumfere ntial wall thickening of gastric pylorus -- seen by Dr. Shah last week - no note to review but suspect she was primarily looking into his lipoma not this abnormal ct scan -- will set up gi eval c wmgi to help r/o esophageal carcinoma cont ppi as dir by Dr. Vaz [id number] Richard Mckay MD Main Office 36[address] [facility] 207 [facility] [place] [address] 03/25/2019 09:42:47 03/25/2019 10:28:46 Edema of lower extremity 885501990 R60.0 Probable venous insufficen cy since only one leg is involved. Doubt DVT given lack of pain. [id number] Hawk Cohn MD Main Office [address] [address] [place] [address] 05/26/2019 15:10:57 05/26/2019 16:34:32 Adult health examination 074708613 Z00.00 Essential hypertension 78669220 I10 Hyperlipidemia 76609642 E78.5 Multiple g astric ulcers 169915083 K25.9 Had EGD positive for mult pre-pylori c ulcers in 03/2019. Slitzky Osteoarthr itis of knee 640624968 M17.9 Stable. Has declined TKA for now. [id number] Hawk Cohn MD Main Office [address] [address] [place] [address] 07/28/2019 09:09:44 07/28/2019 11:55:24 Hyperlipidemia 02150046 E78.5 Hyperglycemia 05843207 R 73.9 Essential hypertension 00963479 I10 Fatigue 97695962 R53.83 [id number] Hawk Cohn MD Main Office [address] [address] [place] [address] 11/20/2019 10:00:50 11/20/2019 11:13:37 Essential hypertension 05321283 I10 Hyperlipidemia 50949880 E78.5 Multiple g astric ulcers 701197994 K25.9 Had EGD positive for mult pre-pylori c ulcers in 03/2019. Slitzky Osteoarthr itis of knee 830736365 M17.12 Stable. Considerin g TKA for left knee [id number] Richard Mckay MD Main Office [address] [address] [place] [address] 12/05/2019 09:23:57 12/05/2019 10:40:28 Pre-surgery evaluation 717398082 Z01.818 low risk for cataract surgery, no labs or EKG requested, should proceed as scheduled. Bilateral cataracts 9572 2003 H26.[address] Wayne, left on 12/11 and right on 12/24. [id number] Richard Mckay MD [facility] [address] [place] [address] [place] [address] 03/14/2020 13:54:12 03/14/2020 16:04:33 Osteoarthritis of left knee joint 1963110386 78167 M17.12 add 2 ES tylenol 3 times daily as needed, increase naproxen to twice daily x 7 days then may decrease dose to once daily if desired. RICE, 20 mins at a time. keep elevated. do not put compressio n stocking up to knee. fold back over at calf so it does not cause more pain. Essential hypertension 83141556 I10 continue current meds. Osteoarthr itis of knee 365556558 M17.9 [id number] Hawk Cohn MD Main Office [address] [place] [address] [place] [address] 04/25/2020 09:32:26 04/25/2020 14:01:15 [id number] Luisana dickens MD [address] [address] [place] [address] 05/10/2020 13:28:55 05/24/2020 08:42:11 Pain of left wrist 3999494582 71265 M25.532 xray now, pt is at [facility], ice elevation, rest, call if any swelling or worsening of pain,will await results Pain in left arm 5005182 00 M79.602 xray today, await results. [id number] Hawk Cohn MD Main Office [address] [place], [place] [address] [address] 05/27/2020 09:38:31 05/27/2020 10:30:09 Adult health examination 353054599 Z00.00 Essential hypertension 00538805 I10 Stable on present meds. Anxiety 70732060 F41.9 Rare use of evening alprazolam for sleep/anxi ety Osteoarthr itis of knee 706345259 M17.12 Stable. S/P TKA for left knee 04/2020. Fatigue 57011161 R53.83 Screening for cardiovascular system disease 508361440 Z13.6 Hyperglycemia 41309910 R 73.9 [id number] Hawk Cohn MD [address] [address] [place] [address] 06/28/2020 13:23:00 06/28/2020 15:03:20 Degeneration of lumbar intervertebral disc 10772177 M51.36 [id number] Hawk Cohn MD Main Office 3640 [facility] 207 [place] [address] 07/05/2020 14:14:40 07/05/2020 17:38:18 [id number] [facility] 3640 [facility] 207 [place] [address] 11/22/2020 08:26:23 11/22/2020 15:02:36 Essential hypertension 69671210 I10 Stable on present meds. Degenerati on of lumbar intervertebral disc 50694761 M51.36 [id number] Robbi Gallardo MD Main Office 3640 [facility] 207 [place] [address] 07/14/2021 11:09:52 07/14/2021 12:24:27 Adult health examination 494249752 Z00.00 Patient was counseled on healthy diet, exercise and nutrition due to Body mass index is 29.1 kg/m . Last PSADate:Re sult:Plan: past age for screening Last Colonoscop y:Date: 08/16/17Res ult: collagen colitisPla n: will try to get note for nest visit. Vaccines:T dAP: 12/04/17Zost er: 11/26/18, 02/17/19PC V13: 05/22/16PPS V23: 07/25/18Inf luenza: notes had for this season.Cov id: 07/27/20, 08/19/20, 04/08/21 Routine labs today Immunizati on status reviewed. Will screen based on risk factors. Regular dental and ophtho care advised as well as seat belt and sunscreen use. Distracted driving discussed. Medication reconciled . Advance care directive Fatigue 96897425 R53.83 Hyperlipidemia 37747010 E78.5 Hyperglycemia 85543839 R 73.9 Essential hypertension 13732275 I10 Ex-smoker 9046388 Z87.89 1 Screening for cardiovascular system disease 166151374 Z13.6 Advance di rective discussed with patient 014876031 Z71.89 Insomnia 135976362 G47.0 0 Body mass index 25-29 - overweight 304117853 E66.3 Z68.25 - Diet and exercise discussed- Encouraged to loose weight.- Avoid starchy and fatty food- Encouraged use of green vegetables and fruits Overweight 958715665 E66 .3 [id number] Robbi Gallardo MD Main Office [address] [place] [address] 02/16/2022 11:08:26 02/16/2022 12:20:55 Essential hypertension 43516993 I10 Low sodium diet discussedC ounseled on medication adherence - khushboo increased, bmp and mg ordered.Co unseled on diet/exerc iseAdvised to keep BP daily BP log and technique counseled. Red flags of HTN emergency discussed and when to go to ED. Gastroesop hageal reflux disease 825304449 K21.9 Degenerati on of lumbar intervertebral disc 19481455 M51.36 Was on naproxen for chronic back pain has Prior history of pre-pylori c ulcers on EGD due to NSAID use. Advised to stop Naproxen start Celebrex as needed only when pain severe otherwise stick to otc tylenol no more than 4gm in 24hr, cont ppi.Side affect or celebrex discussed. Neck pain 85128054 M54.2 1 mo hx, no red flag will get xr and advsise [place] [id number] Robbi Gallardo MD Main Office [address] [address] 03/03/2022 14:05:19 03/03/2022 14:45:55 Essential hypertension 87218410 I10 Low sodium diet discussedC ounseled on medication adherence - khushboo increased, bmp and mg ordered.Co unseled on diet/exerc iseAdvised to keep BP daily BP log and technique counseled. Red flags of HTN emergency discussed and when to go to ED. Degenerati on of lumbar intervertebral disc 29354707 M51.36 Was on naproxen for chronic back pain has Prior history of pre-pylori c ulcers on EGD due to NSAID use. Advised to stop Naproxen start Celebrex as needed only when pain severe otherwise stick to otc tylenol no more than 4gm in 24hr, cont ppi.Side affect or celebrex discussed, taking prn. Neck pain 16556265 M54.2 1 mo hx, no red flag will get xr and advised pt [id number] Robbi Gallardo MD Main Office [address] [address] 08/24/2022 10:38:00 08/24/2022 12:04:53 Essential hypertension 31576417 I10 Low sodium diet discussedC ounseled on medication adherence - khushboo increased, bmp and mg ordered.Co unseled on diet/exerc iseAdvised to keep BP daily BP log and technique counseled. Red flags of HTN emergency discussed and when to go to ED. Gastroesop hageal reflux disease 678983402 K21.9 Fatigue 23252366 R53.83 Z00.00 Hyperlipidemia 74024615 E78.5 Z00.00 Headache 33342146 R51.9 > 52 yo M with Pulsatile headache quality which is quite bad, thus will get MRI/MRA.He has never had this kind of headache.N o fever/rash or photophobi a.Strainin g or exertion does not worsen headacheNo temporal headache or tenderness .Follow eye doc every year and is up to date.Advis ed if sx worsen, any weakness then to go to ED.Will see if pred helps. Neck pain 79771426 M54.2 On a few sedating meds, risk of sedation discussed. Aware no to drive or operate mv/machine ry while taking medHis neck issues could contribute to headache, will do a trial of medrol darcy Dysfunctio n of bilateral eustachian tubes [id number] 296813 H69.93 Quite significan t erythema and mucosal edema, with some mild middle ear fluid, however he has no ear pain.Will hold abx for now follow up in 1 weeks.If saline, and nasal spray don't help or sx worsen will consider abx. Dizziness 943094006 R42 Episodic and spontaneou s, none triggered. He also has headache could be migrainous .Eustachia n tube also full.ECG not concerning , orthostati c neg. [id number] Robbi Gallardo MD Main Office [address] [facility] [place] [address] 08/31/2022 10:57:02 08/31/2022 11:29:56 Headache 30866941 R51.9 MRI/MRI no acute concern steroids and MSK relaxant did not help.Neuro referral placed, possible from neck.Other than ARRIAZA and cyst, no neuro deficits. Neck pain 61483719 M54.2 To see PT tomorrow.P ending eval with Physiatry, referral also printed and given to patient.Cheryl erick msk relaxant, risk of sedation discussed again he will space out if too sedated and also advised he can cut in half. [id number] Jens Hutchinson MD Telehealt h [address] [facility] [address] [facility] [place] [address] 09/04/2022 09:28:39 09/07/2022 14:54:39 Strain of fascia of neck 957047510 S16.1XXD Etiology unclear but it sounds like muscle spasm, not likely but given degree of discomfort will hold statin and see if benzo is effective for overnight flares. Will likely need to f/u with PMR but correspond ence needed to confirm plan. We will request xray and office note. [id number] Robbi Gallardo MD Main Office 3640 [facility] [address] [facility] [place] [address] 10/13/2022 11:09:22 10/13/2022 12:33:22 Adult health examination 756288683 Z00.00 Patient was counseled on healthy diet, exercise and nutrition due to Body mass index is 28.6 kg/m . Last PSADate:Re sult:Plan: past age for screening Last Colonoscop y:Date: 08/16/17Res ult: collagen colitisPla n: He is going to reach out to GI to see if still needed Vaccines:T dAP: 12/04/17Zost er rec: 11/26/18, 02/17/19PC V13: 05/22/16PPS V23: 07/25/18Inf luenza: yearly flu vaccine encouraged .Covid: 07/27/20, 08/19/20, 04/08/21, 05/16/22 bivalent, advised he is eligible for another Routine labs reviewed Immunizati on status reviewed. Will screen based on risk factors. Regular dental and ophtho care advised as well as seat belt and sunscreen use. Distracted driving discussed. Medication reconciled . Advance care directive Advance di rective discussed with patient 034552372 Z71.89 HCP stands, MOLST discussed and given again. Essential hypertension 54534500 I10 Low sodium diet discussedC ounseled on medication adherence, bmp done after khuhsboo increase.C ounseled on diet/exerc iseAdvised to keep BP daily BP log and technique counseled. Red flags of HTN emergency discussed and when to go to ED. Cervical arthritis 38616 1000 M46.92 Followed by neurosurge ry/Physiat ry also getting headaches thus plans to also see neurology. Acute left otitis media 495207708 H66.92 Given sx > 1mo Will start tx. [id number] Robbi Gallardo MD Main Office 3640 [facility] 207 [facility] [place] [address] 10/23/2022 10:57:37 10/23/2022 11:53:35 Acute left otitis media 693869019 H66.92 Augmentin did not help exam still shows bulging tm that is opacified with fluid. Will do levaquin advised to take in am and amitriptyl ine in pm.Cont. with flonase saline if not better I have referred him to ENT. Essential hypertension 31300178 I10 Low sodium diet discussedC ounseled on medication adherence, will increase ccb to max, side affects discussedC ounseled on diet/exerc iseAdvised to keep BP daily BP log and technique counseled. Red flags of HTN emergency discussed and when to go to ED. [id number] Robbi Gallardo MD Main Office [address] [facility] 207 [facility] [place] [address] 11/09/2022 14:57:17 11/09/2022 15:53:29 Essential hypertension 36565413 I10 Low sodium diet discussedC ounseled on medication adherence, will increase ccb to max, side affects discussedC ounseled on diet/exerc iseAdvised to keep BP daily BP log and technique counseled. Red flags of HTN emergency discussed and when to go to ED. Dermatophytosis 07402195 B35.9 [id number] Robbi Gallardo MD Main Office [address] [facility] 207 [facility] [place] [address] 01/13/2023 11:00:08 01/13/2023 11:25:42 Essential hypertension 09190223 I10 Bp acceptable for age will continue current regimen follow up in [facility]WE or sooner should anything arise. Headache 78074201 R51.9 Cont. follow up with neuro Neck pain 29801932 M54.2 Cont. tx per [facility]. [id number] Richard Mckay MD Main Office 36[address] [facility] 207 [place] [address] 08/07/2023 10:51:09 08/07/2023 11:51:02 Pain of ear 265761527 H92.09 No obvious infection. We do a trial of drops and refer to ENT if this persists. [id number] Robbi Gallardo MD Main Office 36[address] [facility] 207 [place] [address] 10/18/2023 12:59:16 10/18/2023 13:51:21 Adult health examination 626676445 Z00.00 Patient was counseled on healthy diet, exercise and nutrition due to Body mass index is 28.5 kg/m . Last PSADate:Re sult:Plan: past age for screening Last Colonoscop y:Date: 08/16/17Res ult: collagen colitisPla n: He is going to reach out to GI to see if still needed Vaccines:T dAP: 12/04/17Zost er rec: 11/26/18, 02/17/19PC V13: 05/22/16PPS V23: 07/25/18PCV 20: 10/16/21Inf luenza: yearly flu vaccine encouraged .Covid: encourage updated vaccineRSV : Discussed Routine labs reviewed Immunizati on status reviewed. Will screen based on risk factors. Regular dental and ophtho care advised as well as seat belt and sunscreen use. Distracted driving discussed. Medication reconciled . Advance care directive Advance di rective discussed with patient 062208444 Z71.89 HCP stands, MOLST discussed and given again. Essential hypertension 21381866 I10 Cervical arthritis 41583 1000 M46.92 Administra tion of viral vaccine 62330252 Z29.11 Fatigue 68924671 R53.83 Z00.00 Hyperlipidemia 01575425 E78.5 Z00.00 FASTING Anxiety 61802389 F41.9 No thoughts of self harm or harming others.On duloxetien , [id number] Robbi Gallardo MD Main Office 36[address] [facility] 207 [place] [address] 01/25/2024 15:00:06 01/25/2024 16:09:15 Chest wall pain 568551521 R07.89 -Will get cxr none done at .-Will get stress test. Discussed with patient the signs/symp toms warranted for a return to office visit and/or an ER visit. Patient understood and agreed with the plan. Transition of care from emergency department to self-care 0375286408 14823 Z76.89 Ucx not reviewed. Chronic diarrhea 9398511 09 K52.9 Will get lab and stool test follow up 1 mo.Conside r imaging and GI given age. Bleeding hemorrhoids 515 93291 K64.9 Declined tx.Wants to fix diarrhea.S wong bath advised. [id number] Robbi Gallardo MD Main Office [address] [place] [address] 207 [place] [place] [address] 01/31/2024 09:01:13 01/31/2024 16:48:57 [id number] Robbi Gallardo MD Main Office [address] [place] [address] [place] [address] 02/01/2024 14:00:46 02/01/2024 14:44:58 Pericarditis 5323476 I31.9 -Will refer to cardiologi st, unclear what caused this.-echo already ordered.-W ill delay stress test till he sees cardiologi st.-Cont. ibuprofen and colchicine . Pleural effusion 7631479 8 J90 Hyponatremia 48963965 E8 7.1 Diarrhea 88460511 R19.7 Improving. Transition of care 52804 76833 105 Z75.8 Hospital notes reviewed. [id number] Robbi Gallardo MD Main Office [address] [place] [address] [place] [address] 02/23/2024 13:30:48 02/23/2024 14:11:38 Diarrhea 67295749 R19.7 Will get stool study for osmatic gap. This was ordered unfortunat ly due to processing error lab was not able to run it.Advised GI follow up will fax results once resulted.. Pericarditis 8697869 I31 .9 -Will refer to cardiologi st, unclear what caused this. Number was given to him to call for apt.-echo already ordered. Number was given to him to call.-Will delay stress test till he sees cardiologi st.-Cont. ibuprofen and colchicine . Pleural effusion 8768491 8 J90 Hemorrhoids 13926093 K64 .9 Will start ointment he is aware not to use for more than 2 weeks.[place] rectal surgeon referral placed.Jacqueline rrhea workup and GI eval pending.Si tz bath encouraged . [id number] Robbi Gallardo MD Main Office [address] [facility] [address] [place] [address] 04/18/2024 13:57:51 04/18/2024 14:34:39 Essential hypertension 19902522 I10 Bp well controlled will continue current regimen. Chronic diarrhea 7112500 09 K52.9 Advised to see GI. Ribonucleo protein antibody detected 446790880 R89.4 referral to rheum made Pericarditis 0364866 I31 .9 Has a cards apt. 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 Headache 03242769 R51.9 Cont. follow up with neuro Non-healin g pigmented skin lesion 063505457 L98.8 Will refer to derm non healing scab. [id number] Robbi Gallardo MD Main Office 36[address] [facility] 207 [place] [address] 11/20/2024 14:29:42 11/20/2024 15:24:31 Adult health examination 750750223 Z00.00 Patient was counseled on healthy diet, exercise and nutrition due to Body mass index is 28.1 kg/m . Last PSADate:Re sult:Plan: past age for screening Last Colonoscop y:Date: 05/10/24Resu lt: mucosal nodule 15 mm at anus, to see colorectal .Plan: s/p hemorrhoid ectomy Vaccines:T dAP: 12/04/17Zost er rec: 11/26/18, 02/17/19PC V13: 05/22/16PPS V23: 07/25/18PCV 20: 10/16/21Inf luenza: yearly flu vaccine encouraged .Covid: encourage updated vaccineRSV : Discussed Routine labs reviewed Immunizati on status reviewed. Will screen based on risk factors. Regular dental and ophtho care advised as well as seat belt and sunscreen use. Distracted driving discussed. Medication reconciled . Advance care directive Advance di rective discussed with patient 652229990 Z71.89 HCP stands, MOLST discussed and given again. Essential hypertension 92570992 I10 Bp well controlled will continue current regimen. Cervical arthritis 42539 1000 M46.92 Administra tion of viral vaccine 69574767 Z29.11 Fatigue 55917023 R53.83 Z00.00 Hyperlipidemia 37877964 E78.5 Z00.00 FASTING Anxiety 97464125 F41.9 No thoughts of self harm or harming others.On duloxetine Ribonucleo protein antibody detected 361126263 R89.4 referral to rheum made he has yet to be seen by rheum. Health Concerns Section Related Observation LastModified by Organization Detai ls LastModified Time None Recorded Concern Status LastModified by Organization Details LastModified Time None Recorded Advance Directives Directive Y: HCP; Ishan Fox Payers Insurance Date Sequence Insurance Name Policy Number Policy Caro Covered Member ID Caro Member ID Guarantor Name 12/04/2024 2 [place] [id number] Lora Tay [id number] Lora Tay 11/20/2024 3 [place]MED[place] PPO) [id number] Lora Tay [id number] Lora Tay 01/25/2024 2 [place] [facility] Lora Tay [id number] Lora Tay 11/20/2024 1 [place] [employer] Lora Tay [id number] Lora Tay 02/03/2024 [facility] [id number] Suhail J Hamilton Lora Tay Notes Date Note Type Note Provider Name and Address Organization Details Recorded Time 4 text/html Hospitalization Contact RecordReported by PatientHospitalization Contact RecordFor follow up, patient reportshospital: [facility],admit date: (please enter in format 'mm/dd/yyyy') (01/28/2024),date of discharge: (please enter in format 'mm/dd/yyyy') (01/29/2024), anddate of contact: (please enter in format 'mm/dd/yyyy') (01/31/2024).Medicare covered inpatient stay? yesMedicare EDA with in 48 working hours? yesHigh Complexity code valid on or before:JanuaryModerate Complexity code valid on or before:JanuaryHCP on file? noMOLST on file? noDischarge Summary available? yes01/31/24- pt has already called in and has hosp f/u appt tomorrow. Pt had been having sx of chest tightness, shoulder pain, with flu like feeling, was urgently by PCP office. Found to have elevated D Dimer, CTA chest done which was negative for PE, found to have moderate pericardial effusion associated with pericardial enhancement suggestive of pericarditis, bilateral pleural effusions. Pt had reported this began after he had been doing some housework and the next day started with the above sx, which had self resolved but he was seen by PCP office thereafter. Case discussed with [employer] Directory Assistance Operator in detail, working dx of pericarditis, recs to continue with colchicine and Ibu- WILL NEED ECHO OUTPT UNAVAILABLE AT HOSPITAL WHILE THERE. Lasix not recommended, normal sinus rhythm on EKG, and ESR was elevated. PCP FOLLOW UP/HEADS UP-hospital follow up- follow up with Cardiology within 2 weeks- get an outpt echo!! MEDS STARTEDColchicine 0.6 mg BIDIbuprofen 60 mg TID x 2 weeks MEDS DISCONTINUEDCelecoxib MEDS RECONCILED Robbi Gallardo MD [address] [facility] [address], [place], [address], [facility] [place] 01/31/2024 16:48:55 4 text/html Hospitalization Contact RecordReported by PatientHospitalization Contact RecordFor follow up, patient reportshospital: [facility],admit date: (please enter in format 'mm/dd/yyyy') (01/28/2024),date of discharge: (please enter in format 'mm/dd/yyyy') (01/29/2024), anddate of contact: (please enter in format 'mm/dd/yyyy') (01/31/2024).Medicare covered inpatient stay? yesMedicare EDA with in 48 working hours? yesHigh Complexity code valid on or before:JanuaryModerate Complexity code valid on or before:JanuaryHCP on file? noMOLST on file? noDischarge Summary available? yes01/31/24- pt has already called in and has hosp f/u appt tomorrow. Pt had been having sx of chest tightness, shoulder pain, with flu like feeling, was urgently by PCP office. Found to have elevated D Dimer, CTA chest done which was negative for PE, found to have moderate pericardial effusion associated with pericardial enhancement suggestive of pericarditis, bilateral pleural effusions. Pt had reported this began after he had been doing some housework and the next day started with the above sx, which had self resolved but he was seen by PCP office thereafter. Case discussed with [employer] Directory Assistance Operator in detail, working dx of pericarditis, recs to continue with colchicine and Ibu- WILL NEED ECHO OUTPT UNAVAILABLE AT HOSPITAL WHILE THERE. Lasix not recommended, normal sinus rhythm on EKG, and ESR was elevated. PCP FOLLOW UP/HEADS UP-hospital follow up- follow up with Cardiology within 2 weeks- get an outpt echo MEDS STARTEDColchicine 0.6 mg BIDIbuprofen 60 mg TID x 2 weeks MEDS DISCONTINUEDCelecoxib MEDS RECONCILED Today he notes he is feeling better, an echo has already been ordered.He denies any cp, shortness of breath or palpitation. He also has a stress test pending but I discussed postponing this first. We will try to expedite echo and cardiology apt. Robbi Gallardo MD [address], [place], [address], [facility] [place] 14:42:10 4 text/html DiarrheaReported by PatientHPIFor quality, patient reportsworsening. For onset/timing, patient reportsnocturnal diarrhea(none bloody, none mucoid, not tarry.). For associated symptoms, patient reportsweight loss (___ lbs)but reportsno abdominal pain,no excess gas,no fever,no rash,no joint pain,no nausea,no vomiting,no heartburn,no blood in stool,no mucus in stool,no black or tarry stools,no weakness, andno nutrient deficiency. For duration, patient reportspresent for 1 month. For context, patient reportsno one else with similar symptoms,no recent camping,no recent picnic,no possible food sources,no recent travel, andhas had a colonoscopy. For alleviating factors, patient reportsimodium. For aggravating factors, (fiber cereal.).Follow up for diarrhea, sx was improving but continues to persist. Robbi Gallardo MD [address] [address], [place], [address], [facility] 02/23/2024 18:19:05 4 text/html Hypertension F/UReported by PatientHPIFor lifestyle, patient reportsnot exercising regularlybut reportslimiting/avoiding salt. For associated symptoms, patient reportsno dizziness,no lightheadedness,no chest pain,no shortness of breath,no palpitations,no edema, andno calf pain with exertion. For medications, patient reportstaking medications as directedandno side effects from medication.BP acceptable for age.ROS as noted in the HPI Here for bp getting botox at [facility] for neck and headache. Hopefully this will help with headache for which he see's neurologist.Has gi for diarrhea and cards for pericarditis.He is aware to cut down colchicine dialy to qD after Apr 29 where he would have been on it for 3 mo. Robbi Gallardo MD [address] [address], [place], [address], [facility] 04/18/2024 14:28:53 5 text/html Medicare Annual Wellness VisitReported by PatientSocial/Behavioral HistoryFor diet and nutrition, patient reportshealthy diet. For fracture risk, patient reportsno history of fractures. For physical activity, patient reportsexercises on a regular basis.Mental Status:For concentration and memory, patient reportsno decreased concentrating ability. For speech/motor difficulties, patient reportsno speech difficulties. For depression risk, (see phq).Functional AbilityFor hearing, patient reportsno loss of hearing. For vision, patient reportsno vision problems. For activities of daily living, patient reportsable to bathe with limited or no assistance,able to contol urination and bowels,able to dress with limited or no assistance,able to feed self with limited or no assistance,able to get out of chair or bed with limited or no assistance,able to groom with limited or no assistance, andable to toilet with limited or no assistance. For instrumental activities of daily living, patient reportsable to do house work with limited or no assistance,able to grocery shop with limited or no assistance,able to manage medications with limited or no assistance,able to manage money with limited or no assistance,able to prepare meals with limited or no assistance, andable to use the phone with limited or no assistance. For falls risk assessment, patient reportsno frequent falls while walking. For home safety, patient reportsno unsafe stairs,working smoke/co detectors,use of seatbelts,good lighting in the home, andreviewed sun protection.ROS as noted in the HPI Here for PE visit. Reviewed chronic medications and medical problems. Discussed screening guidelines as well as goals for fitness and weight management. Robbi Gallardo MD [address] [address], [place], [address], [facility] 11/20/2024 15:25:55
== END 2025-03-19 15:06 | disposition home or self-care (01) ==
LOC: HO.HSM 14:39
PROVIDERS: PCP Family Medicine; Referring Provider Family Medicine; Visit Provider Registered Nurse
DX: G44.209 Tension-type headache, unspecified, not intractable (principal); M50.90 Cervical disc disorder, unspecified, unspecified cervical region
CPT/HCPCS: 99214

== ENCOUNTER → 2025-03-19 14:39 | Outpatient (BNVA) | payer MEDICARE, SELFPAY | PROVIDERS: PCP Family Medicine; Referring Provider Family Medicine; Visit Provider Registered Nurse | DX: M50.90 Cervical disc disorder, unspecified, unspecified cervical region (principal); G44.209 Tension-type headache, unspecified, not intractable | CPT/HCPCS: 99212 ==